=== PATIENT | male | born 1960 | race Caucasian/White ===

== ENCOUNTER 2020-03-17 16:57 | Inpatient (IN) ==
[2020-03-17] MEDS ORDERED: IOPAMIDOL 100 ML BOTTLE IV ONE (16:58)
[2020-03-17] MEDS ORDERED: 0.9 % SODIUM CHLORIDE 1,000 ML IV ONE ×2 (18:23→20:36)
[2020-03-17] MEDS ORDERED: HYDROmorphone 0.5 MG/0.5 ML SYRINGE IV PRN (18:23)
[2020-03-17] MEDS ORDERED: ONDANSETRON 4 MG/2 ML VIAL IV ONE (18:23)
--- NOTE | 2020-03-17 18:27 | Emergency Department Note ---
General Adult HPI - General Chief complaint: Urogenital-Male Stated complaint: Hemeroids and R buttock pain Time Seen by Provider: 03/17/20 17:28 Source: patient Mode of arrival: ambulatory Limitations: no limitations - History of Present Illness HPI Narrative: 59-year-old male patient presents emergency department with chief complaint of worsening rectal pain, nausea, and constipation. Patient was evaluated by a colleague in the emergency department yesterday for similar symptoms. At that time he had what appeared to be some prostate tenderness and possible internal hemorrhoids. He was treated for same with hydrocortisone suppositories and cipr ofloxacin twice daily. He was also given few hydrocodone for pain. Unfortunately, patient mentions he woke up this morning feeling much worse. He is now having considerable pain to his rectum more localized to the right side. He rates his pain at 9/10. He mentions to me has not had a bowel movement last 3 days. He passed no flatus yesterday but is passed very little flatus today. He feels the urge to defecate but is unable to. He denies active vomiting. He mentions that the pain medication has not been effective. ROS: Denies systemic illness, fever, sweats, chills. Denies runny nose, sinus congestion, or cough. Denies shortness of breath. Denies retrosternal chest pain or palpitations. Denies dysuria, hematuria, urinary frequency, or urinary urgency. Denies generalized or focal weakness. - Related Data Home Medications Medication Instructions Recorded Confirmed Ascorbic Acid/Multivit-Min 1 packet PO QDAY 08/13/18 03/17/20 [Emergen-C 1,000 mg Packet] Aspirin [Ana Lilia Chewable Aspirin] 81 mg PO QDAY 08/13/18 03/17/20 Hydrochlorothiazide [Oretic] 25 mg PO DAILY 08/13/18 03/17/20 Loratadine [Allerclear] 10 mg PO QDAY 08/13/18 08/13/18 Losartan Potassium [Cozaar] 100 mg PO DAILY 08/13/18 03/17/20 Previous Rx's Medication Instructions Recorded Ciprofloxacin [Cipro] 500 mg PO BID #30 tab 03/16/20 HYDROcodone/APAP 5/325MG [[place] 1 tab PO Q4HP PRN #10 tab 03/16/20 5-325Mg] Hydrocortisone Acetate [Anusol Hc] 25 mg AL BID #10 supp.rect 03/16/20 Allergies Allergy/AdvReac Type Severity Reaction Status Date / Time No Known Drug Allergies Allergy Verified 08/13/18 19:34 Review of Systems All systems ED: reviewed and negative except as stated. Past Medical History - Past Medical History Medical history: Reports: no medical history - Social History smoking status: Never smoker Physical Exam Limitations: no limitations General appearance: other (Well-developed, well-nourished, morbidly obese 59-year-old male patient laying right lateral recumbent on the emergency room gurney obviously feeling uncomfortable. He is in no acute respiratory distress. He is mildly tachycardic at 106 but his other vital signs are normal limits. He is afebrile. He does not appear septic.) Head: atraumatic, normocephalic Eye: Present: normal appearance, PERRL, EOMI. Absent: scleral icterus, conjunc tival injection ENT: Present: normal oropharynx, mucous membranes moist Neck: Present: trachea midline. Absent: lymphadenopathy Chest: Present: symmetric chest wall rise Respiratory: Present: normal lung sounds bilaterally. Absent: respiratory distress, wheezes, stridor, accessory muscle use, prolonged expiratory phase Cardiovascular: Present: regular rate, normal rhythm. Absent: systolic murmur, diastolic murmur Abdominal: Present: soft, distention, tenderness, rigidity, diminished bowel sounds, other (Patient is morbidly obese making the abdominal exam somewhat difficult. She is very tense and firm throughout his abdomen on exam.). Abs ent: guarding, rebound, organomegaly, mass Abdominal tenderness: Present: diffuse, moderate Rectal: Present: normal rectal tone, heme (-) stool, tenderness (Exquisite tenderness palpation to the right rectal wall on exam. No obvious area of fluctuance.), prostate tenderness. Absent: normal inspection (Small external hemorrhoid noted.), fecal impaction Extremities: Present: normal inspection, normal capillary refill. Absent: pedal edema, pretibial edema, calf tenderness Back: Present: normal inspection, full ROM. Absent: CVA tenderness (R), CVA tenderness (L) Neurological: Present: alert, oriented X3 Psychiatric: Present: normal affect, normal mood Skin: Present: warm, dry, normal color Course Course Narrative: Patient was evaluated yesterday started on treatment for prostatitis and possible internal hemorrhoids. Unfortunately returns today worse. With this in mind we are going to order some repeat laboratory studies. He did have considerable tenderness on rectal exams are going to order abdominal/pelvic CT scan with contrast. Patient was given Dilaudid 0.5 mg IVP for pain. He was given 4 mg of Zofran IVP for nausea. He was started on normal saline at 1000 mL bolus. A review of his laboratory studies show the following: CBC WBC 12.8, all others within normal limits. CMP creatinine 1.3, all others within normal limits. Abdominal/pelvic CT scan with contrast showing a small right perianal abscess with infiltration of the perianal fat. Radiologist mentioned an 8 mm noncalcified right lower lobe pulmonary parenchymal nodule and recommends a repeat CT scan follow-up in 6-12 months. He also mentions a 12 mm low-density lesion of the right lobe of the liver and recommends follow-up. After reviewing all the data I discussed these findings with the patient. At this time patient does have a developing suzanne-rectal abscess. With this in mind, I reached out to our on-call general surgeon (Dr. Myers) and discussed the case with him. At this time requested that the patient be admitted to observation under his care. Patient is to be placed n.p.o. after midnight anticipation of surgery. Dr. Myers recommended starting IV Zosyn and providing for his pain. Knowing this I placed holding orders for the patient. Afterward, patient is going to be admitted to the surgical service as mentioned. All further treatment decisions, modalities, and ultimate patient disposition will be carried out by Dr. Myers. Vital Signs Temperature 97.7 F 03/17/20 16:59 Pulse Rate 106 H 03/17/20 16:59 Respiratory Rate 18 03/17/20 16:59 Blood Pressure 160/96 03/17/20 16:59 Pulse Oximetry (%) 96 03/17/20 16:59 Temperature 97.7 F 03/17/20 16:59 Pulse Rate 96 H 03/17/20 21:21 Respiratory Rate 18 03/17/20 16:59 Blood Pressure 172/92 03/17/20 21:21 Pulse Oximetry (%) 93 03/17/20 21:21 Medical Decision Making - Lab Data Lab results reviewed: Yes I reviewed the patient's lab results. Result diagrams: 03/17/20 18:55 03/17/20 18:55 Lab Results 03/17/20 03/17/20 Range/Units 18:55 18:55 WBC 12.8 H (4.50-11.00) K/mcL RBC 5.25 (4.63-6.08) M/mcL Hgb 16.2 (13.7-17.5) g/dL Hct 47.9 (40.1-51.0) % POC Hct 49.0 (41.0-55.0) % MCV 91.2 (80.0-100.0) fL MCH 30.9 (26.0-34.0) pg MCHC 33.8 (31.0-36.0) g/dL RDW 12.6 (11.5-14.5) % Plt Count 263 (140-440) K/mcL MPV 9.7 (7.4-10.4) fL Gran % 80.7 H (38.0-78.0) % Lymph % (Auto) 8.7 L (15.5-49.0) % [place]anan % (Auto) 9.7 (1.0-12.0) % Eos % (Auto) 0.7 (0.0-7.0) % Baso % (Auto) 0.2 (0.0-2.0) % Gran # 10.35 H (1.80-8.00) K/mcL Lymph # (Auto) 1.11 L (1.50-4.80) K/mcL [place]anan # (Auto) 1.25 H (0.10-0.90) K/mcL Eos # (Auto) 0.09 (0.00-0.70) K/mcL Baso # (Auto) 0.03 (0.00-0.30) K/mcL POC Sodium 138 (133-145) mmol/L Sodium 139 (133-145) mmol/L POC Potassium 3.5 (3.3-5.1) mmol/L Potassium 3.8 (3.3-5.1) mmol/L POC Chloride 100 (96-108) mmol/L Chloride 100 (96-108) mmol/L Carbon Dioxide 26 (22-30) mmol/L POC Total CO2 28 (22-30) mmol/L Anion Gap 13.0 (8-16) POC BUN 15 (6-20) mg/dl BUN 14 (6-20) mg/dl Creatinine 1.3 H (0.7-1.2) mg/dl POC Creatinine 1.3 H (0.7-1.2) mg/dl GFR Calculation 59 Glucose 103 (70-105) mg/dL POC Glucose 112 H (70-105) mg/dL Calcium 9.3 (8.6-10.4) mg/dl POC WB Ioniz Calcium 1.16 (1.16-1.32) mmol/L Total Bilirubin 0.7 (0.0-1.0) mg/dL AST 29 (0-37) U/l ALT 30 (0-40) U/l Alkaline Phosphatase 57 (39-117) U/L Total Protein 7.2 (5.9-8.4) gm/dL Albumin 4.0 (3.2-5.2) gm/dL Globulin 3.2 (2.2-3.7) gm/dL Albumin/Globulin Ratio 1.3 (1.0-2.3) - Radiology Data Radiology results reviewed: Yes I reviewed the patient's radiology results. Ordering Physician: Wilmar Lebron PA-C Date of Service: 03/17/20 Procedure(s): CT abdomen pelvis w con Accession Number(s): [id number] INDICATION: Worsening pelvic/perineal pain. COMPARISON: None. TECHNIQUE: Axial images were obtained through the abdomen and pelvis. Sagittally and coronally reformatted images. 80 mL Isovue 370 injected intravenously. Oral contrast material was not administered FINDINGS: Lung bases:8 mm noncalcified nodule at the right lung base, image 29. 6-12 month and 18-[address] follow-up recommended. Lung bases are otherwise negative Liver:12 mm low-density lesion in the posterior segment of the right lobe of the liver. This is a nonspecific finding. Clinical correlation for history of primary malignancy is recommended. This may be a benign hemangioma. Ultrasound may be of benefit. Follow-up CT scan in 6 months could also be performed. There is probable hepatic steatosis. No other focal abnormality. Gallbladder, bilary:No calcified gallstones. No gallbladder wall thickening. No dilated intra or extrahepatic bile ducts. Spleen:No splenomegaly. Normal enhancement of splenic and portal veins. Pancreas:No pancreatic mass. No peripancreatic abnormality Adrenal glands:Negative Kidneys, ureters, bladder: 3.6 cm right renal cyst. Kidneys are otherwise negative. No solid mass. No hydronephrosis There is no hydroureter. No ureteral stone No bladder calculi or detectable mass Gastrointestinal: There is right-sided perianal soft tissue abnormality. There is a 12 mm low density lesion which may be a perianal abscess. There is infiltration of the perianal gluteal fat. There is no soft tissue gas. No evidence for Tay's gangrene Colon is otherwise negative. No diverticulitis. No detectable colonic mass. Small bowel is negative. No mechanical small bowel obstruction. Appendix: The appendix is negative Vascular:Negative abdominal aorta. Superior mesenteric artery and celiac trunk are normal. Normal opacification of the inferior mesenteric artery Lymphatic:No retroperitoneal or mesenteric adenopathy Mesentery, peritoneum: No free intraperitoneal fluid. No mesenteric or retroperitoneal mass. Reproductive:The prostate is not significantly enlarged Musculoskeletal:No lumbar compression fractures. Sacrum and pelvis are negative. No hip fracture. IMPRESSION: 1. Small right perianal abscess and infiltration of perianal fat 2. 8 mm noncalcified right lower lobe pulmonary parenchymal nodule 3. 12 mm low-density lesion in the right lobe of liver. Follow-up recommended 4. Negative appendix The exam was performed using radiation dose optimization techniques including, but not limited to, automated exposure control, adjustment of the mA and/or kV according to patient size and use of iterative reconstruction technique. Interpreted and Authenticated by: Leo Mancera 03/17/20 Disposition Pt seen by SYSTEMS SPECIALIST/PA only: Yes Clinical Impression: Perirectal abscess, Pulmonary nodule Disposition: Xfer As Outpt/Obs ([facility]) Condition: Good Referrals: Fast,Jad, FIRE MANAGEMENT TECHNICIAN [Primary Care Provider] -
[2020-03-17 19:14] LABS: POC Blood Urea Nitrogen 15 mg/dl (6-20); POC CO2 28 mmol/L (22-30); POC Calcium, Ionized 1.16 mmol/L (1.16-1.32); POC Chloride 100 mmol/L (96-108); POC Creatinine 1.3 mg/dl (0.7-1.2); POC Glucose, Random 112 mg/dL (70-105); POC Potassium 3.5 mmol/L (3.3-5.1); POC Sodium 138 mmol/L (133-145)
[2020-03-17 20:07] LABS: Basophils # (Auto) 0.03 K/mcL (0.00-0.30); Basophils % (Auto) 0.2 % (0.0-2.0); Eosinophils # (Auto) 0.09 K/mcL (0.00-0.70); Eosinophils % (Auto) 0.7 % (0.0-7.0); Granulocytes % (Auto) 80.7 % (38.0-78.0); Hematocrit 47.9 % (40.1-51.0); Hemoglobin 16.2 g/dL (13.7-17.5); Lymphocytes # (Auto) 1.11 K/mcL (1.50-4.80); Lymphocytes % (Auto) 8.7 % (15.5-49.0); Mean Cell Volume 91.2 fL (80.0-100.0); Mean Corpuscular HGB Conc 33.8 g/dL (31.0-36.0); Mean Platelet Volume 9.7 fL (7.4-10.4); Monocytes # (Auto) 1.25 K/mcL (0.10-0.90); Monocytes % (Auto) 9.7 % (1.0-12.0); Platelet Count 263 K/mcL (140-440); RBC 5.25 M/mcL (4.63-6.08); Red Cell Distribution Width 12.6 % (11.5-14.5); WBC 12.8 K/mcL (4.50-11.00)
[2020-03-17 20:27] LABS: ALT/SGPT 30 U/l (0-40); AST/SGOT 29 U/l (0-37); Albumin/Globulin Ratio 1.3 (1.0-2.3); Alkaline Phosphatase 57 U/L (39-117); Bilirubin,Total 0.7 mg/dL (0.0-1.0); Blood Urea Nitrogen 14 mg/dl (6-20); Calcium 9.3 mg/dl (8.6-10.4); Carbon Dioxide 26 mmol/L (22-30); Chloride 100 mmol/L (96-108); Globulin 3.2 gm/dL (2.2-3.7); Glomerular Filtration Rate 59; Glucose 103 mg/dL (70-105)
--- NOTE | 2020-03-17 21:42 | Cat Scan Report ---
INDICATION: Worsening pelvic/perineal pain. COMPARISON: None. TECHNIQUE: Axial images were obtained through the abdomen and pelvis. Sagittally and coronally reformatted images. 80 mL Isovue 370 injected intravenously. Oral contrast material was not administered FINDINGS: Lung bases:8 mm noncalcified nodule at the right lung base, image 29. 6-12 month and 18-[address] follow-up recommended. Lung bases are otherwise negative Liver:12 mm low-density lesion in the posterior segment of the right lobe of the liver. This is a nonspecific finding. Clinical correlation for history of primary malignancy is recommended. This may be a benign hemangioma. Ultrasound may be of benefit. Follow-up CT scan in 6 months could also be performed. There is probable hepatic steatosis. No other focal abnormality. Gallbladder, bilary:No calcified gallstones. No gallbladder wall thickening. No dilated intra or extrahepatic bile ducts. Spleen:No splenomegaly. Normal enhancement of splenic and portal veins. Pancreas:No pancreatic mass. No peripancreatic abnormality Adrenal glands:Negative Kidneys, ureters, bladder: 3.6 cm right renal cyst. Kidneys are otherwise negative. No solid mass. No hydronephrosis There is no hydroureter. No ureteral stone No bladder calculi or detectable mass Gastrointestinal: There is right-sided perianal soft tissue abnormality. There is a 12 mm low density lesion which may be a perianal abscess. There is infiltration of the perianal gluteal fat. There is no soft tissue gas. No evidence for Tay's gangrene Colon is otherwise negative. No diverticulitis. No detectable colonic mass. Small bowel is negative. No mechanical small bowel obstruction. Appendix: The appendix is negative Vascular:Negative abdominal aorta. Superior mesenteric artery and celiac trunk are normal. Normal opacification of the inferior mesenteric artery Lymphatic:No retroperitoneal or mesenteric adenopathy Mesentery, peritoneum: No free intraperitoneal fluid. No mesenteric or retroperitoneal mass. Reproductive:The prostate is not significantly enlarged Musculoskeletal:No lumbar compression fractures. Sacrum and pelvis are negative. No hip fracture. IMPRESSION: 1. Small right perianal abscess and infiltration of perianal fat 2. 8 mm noncalcified right lower lobe pulmonary parenchymal nodule 3. 12 mm low-density lesion in the right lobe of liver. Follow-up recommended 4. Negative appendix The exam was performed using radiation dose optimization techniques including, but not limited to, automated exposure control, adjustment of the mA and/or kV according to patient size and use of iterative reconstruction technique. Interpreted and Authenticated by: Leo Mancera 03/17/20
[2020-03-17] MEDS ORDERED: ONDANSETRON 4 MG/2 ML VIAL IV PRN (22:50)
[2020-03-18] MEDS: PIPERACILLIN SODIUM/TAZOBACTAM 3.375 GM in DEXTROSE 5% IN WATER 50 ML IV SCH ×5 (00:15→23:58)
[2020-03-18] MEDS: HYDROmorphone 0.5 MG/0.5 ML SYRINGE IV PRN ×6 (00:20→23:58)
[2020-03-18] MEDS: 0.9 % SODIUM CHLORIDE 1,000 ML IV SCH ×5 (00:23→23:57)
[2020-03-18] MEDS: 0.9 % SODIUM CHLORIDE 10 ML SYRINGE IV SCH ×5 (05:04→21:42)
--- NOTE | 2020-03-18 11:25 | General Surg History&Physical ---
History of Present Illness Patient information: Note initiated : 03/18/20 at 11:20 am Service Date, if different from initiated Date: [] Patient: Unruly Fink 59 y/o M admitted on 03/17/20 for Hemeroids and R buttock pain. Chief Complaint: [] HPI: Mr. Fink is a 59 year old M admitted for treatment of a high perirectal, periprosthetic abscess with surrounding cellulitis. The patient started having diffuse pain of his perineum and perianal area on Friday. The pain became progressively worse and he had difficulty with urinating. He was finally treated in the emergency room on and it was elected to treat her with antibiotics for possible prostatitis. He did not get any better and returned on Friday for repeat symptoms. His white count was 12.4. CT shows a 1 cm focal area of possible fluid collection with tissue edema is surrounding the area extending about 5 cm but no organized major abscess. He was admitted and is to be considered for operative therapy however I have reviewed his x-rays with the radiologist and the area of concern is only 1 cm and is to high to be considered for operative drainage at this time. He is counseled for antibiotic therapy with "close observation. If he should progress will take him to the operating room for examination under anesthesia and open drainage. Review of Systems All systems PM: reviewed and no additional remarkable complaints except as stated (negative except as noted in HPI and below) - Cardiovascular claudication ( bilateral calf claudication) - Musculoskeletal other ( right shoulder pain) - Neurological other ( neuropathy of both feet) Past History Past medical history: No known medical illness Past surgical history: Left elbow surgery remotely Past family history: Age 83 with prior history of kidney cancer Father age 81 due to severe degenerative dementia Brother age 62 due to fatal AK from coronary artery disease Past social history: Never smoker CHEWED tobacco for 38 years but stopped 10 years ago Medications and Allergies Home Medications Medication Instructions Recorded Confirmed Type Ascorbic Acid/Multivit-Min 1 packet PO QDAY 08/13/18 03/18/20 History [Emergen-C 1,000 mg Packet] Aspirin [Ana Lilia Chewable Aspirin] 81 mg PO QDAY 08/13/18 03/18/20 History Hydrochlorothiazide [Oretic] 25 mg PO DAILY 08/13/18 03/18/20 History Loratadine [Allerclear] 10 mg PO QDAY 08/13/18 03/18/20 History Losartan Potassium [Cozaar] 100 mg PO DAILY 08/13/18 03/18/20 History HYDROcodone/APAP 5/325MG [[place] 1 tab PO Q4HP PRN #10 tab 03/16/20 03/18/20 Rx 5-325Mg] Hydrocortisone Acetate [Anusol Hc] 25 mg AL BID #10 supp.rect 03/16/20 03/18/20 Rx Allergies Allergy/AdvReac Type Severity Reaction Status Date / Time No Known Drug Allergies Allergy Verified 08/13/18 19:34 Exam Temp Pulse Resp BP Pulse Ox 98.9 F 83 18 132/75 93 03/18/20 08:00 03/18/20 08:00 03/18/20 08:00 03/18/20 08:00 03/18/20 08:00 - General physical appearance well developed, well nourished, no distress - Eyes PERRL, normal ocular movement - ENT normal pinna, normal nares, normal mucosa, no hearing loss, no congestion - Head Head exam IM: Present: atraumatic, normocephalic - Neck no masses, no bruits, trachea midline, no lymphadenopathy, no venous distension - Cardiovascular Cardiovascular exam IM: Present: normal rate and rhythm - Respiratory normal expansion, normal respiratory effort, clear to percussion, clear to auscultation - Abdomen Abdomen: Present: soft, non tender, bowel sounds Hernia: Present: none - Genitourinary Present: normal penis with no external lesions (he) - Rectum Rectum: Present: normal sphincter tone, no masses, no bleeding, other (perianal tenderness of the right side but no masses noted; normal sphincter tone; small external hemorrhoid tags) - Integumentary Present: no rash, no growths, no abnormal pigmentation - Neurologic Present: normal coordination, normal sensation - Musculoskeletal Present: normal gait, normal posture - Psychiatric Present: oriented to time, oriented to person, oriented to place, speech is normal, memory intact Assessment and Plan (1) Perirectal abscess The abscess is very small at 1 cm and is high near the border of the prostate. He has some tissue edema emanating from the area but no formed abscess that can be drained. Patient is advised that I would treat him with antibiotics and will make decision in 1-2 days if he should need operation. It is probable that operation will not be needed.. Status: Acute (2) Prostatitis Malave catheter to remain in place until the inflammation has resolved Status: Acute
[2020-03-18] MEDS ORDERED: ONDANSETRON 4 MG/2 ML VIAL IV PRN (11:36)
[2020-03-18] MEDS ORDERED: ENOXAPARIN 40 MG/0.4 ML SYRINGE SQ SCH (12:00)
[2020-03-18] MEDS ORDERED: ENOXAPARIN 40 MG/0.4 ML SYRINGE SQ ONE (12:30)
[2020-03-18] MEDS ORDERED: SENNOSIDES 1 TABLET PO SCH (21:00)
[2020-03-18] MEDS: DOCUSATE SODIUM 100 MG CAPSULE PO SCH (21:42)
[2020-03-19] MEDS: HYDROmorphone 0.5 MG/0.5 ML SYRINGE IV PRN ×5 (02:32→23:33)
[2020-03-19] MEDS: 0.9 % SODIUM CHLORIDE 1,000 ML IV SCH ×4 (03:56→23:32)
[2020-03-19] MEDS: 0.9 % SODIUM CHLORIDE 10 ML SYRINGE IV SCH ×6 (04:49→20:54)
[2020-03-19] MEDS: PIPERACILLIN SODIUM/TAZOBACTAM 3.375 GM in DEXTROSE 5% IN WATER 50 ML IV SCH ×4 (05:32→23:42)
[2020-03-19 06:50] LABS: Basophils # (Auto) 0.04 K/mcL (0.00-0.30); Basophils % (Auto) 0.3 % (0.0-2.0); Eosinophils # (Auto) 0.27 K/mcL (0.00-0.70); Eosinophils % (Auto) 2.3 % (0.0-7.0); Granulocytes % (Auto) 78.1 % (38.0-78.0); Hematocrit 40.8 % (40.1-51.0); Hemoglobin 13.9 g/dL (13.7-17.5); Lymphocytes % (Auto) 9.5 % (15.5-49.0); Mean Cell Volume 90.3 fL (80.0-100.0); Mean Corpuscular HGB Conc 34.1 g/dL (31.0-36.0); Mean Platelet Volume 9.7 fL (7.4-10.4); Monocytes # (Auto) 1.13 K/mcL (0.10-0.90); Monocytes % (Auto) 9.8 % (1.0-12.0); Platelet Count 231 K/mcL (140-440); RBC 4.52 M/mcL (4.63-6.08); Red Cell Distribution Width 12.4 % (11.5-14.5); WBC 11.5 K/mcL (4.50-11.00)
[2020-03-19 07:06] LABS: ALT/SGPT 27 U/l (0-40); AST/SGOT 35 U/l (0-37); Albumin 3.1 gm/dL (3.2-5.2); Albumin/Globulin Ratio 1.1 (1.0-2.3); Alkaline Phosphatase 45 U/L (39-117); Bilirubin,Direct 0.2 mg/dL (0.0-0.3); Bilirubin,Total 0.7 mg/dL (0.0-1.0); Blood Urea Nitrogen 11 mg/dl (6-20); Calcium 8.1 mg/dl (8.6-10.4); Carbon Dioxide 25 mmol/L (22-30); Chloride 102 mmol/L (96-108); Globulin 2.8 gm/dL (2.2-3.7); Glucose 105 mg/dL (70-105); Lactate Dehydrogenase 184 U/L (94-250); Triglycerides 88 mg/dl (<150); Uric Acid 3.9 mg/dL (2.5-8.0)
[2020-03-19 07:11] LABS: Glomerular Filtration Rate 81; Phosphorous 2.1 mg/dL (2.7-4.5)
[2020-03-19] MEDS: DOCUSATE SODIUM 100 MG CAPSULE PO SCH (08:13)
[2020-03-19] MEDS: LOSARTAN 50 MG TABLET PO SCH (08:21)
[2020-03-19] MEDS: ENOXAPARIN 40 MG/0.4 ML SYRINGE SQ SCH (08:25)
--- NOTE | 2020-03-19 11:24 | General Surgery Progress Note ---
Subjective Patient reports: feels better, still having pain, flatus, diarrhea, afebrile Narrative: Note initiated : 03/19/20 at 11:22 am Service Date, if different from initiated Date: [] Patient: Unruly Fink 59 y/o M admitted on 03/18/20 for Hemeroids and R buttock pain. Chief Complaint: [patient states that he feels better overall. His actual pain level is better though he still rates it between 7 and 8. He has had some loose bowel movements with incontinence. He has not had any rectal bleeding. He describes fecal urgency. He has been afebrile with a peak temperature of 99.2 on yesterday. White blood count 11.5, hemoglobin 13.9, hematocrit 40.8, phosphorus 2.1, potassium 3.7] Objective Temp Pulse Resp BP Pulse Ox 97.8 F 84 18 162/87 94 03/19/20 08:00 03/19/20 08:00 03/19/20 08:00 03/19/20 08:00 03/19/20 08:00 - Additional Data Intake & Output - Last 24 hours: Intake & Output 03/17/20 03/18/20 03/19/20 03/20/20 05:59 05:59 05:59 05:59 Intake Total 2100 4690 350 Output Total 1150 2350 Balance 950 2340 350 Weight 277 lb 6.4 oz 281 lb 1 oz - General physical appearance well developed, well nourished, no distress - Eyes PERRL, normal ocular movement - ENT normal pinna, normal nares, normal mucosa, no hearing loss, no congestion - Neck no masses, no bruits, trachea midline, no lymphadenopathy, no venous distension - Respiratory normal expansion, normal respiratory effort, clear to auscultation - Cardiovascular Cardiovascular exam: Present: normal rate and rhythm, RRR, +S1, +S2. Absent: JVD, tachycardia - Abdomen non tender, bowel sounds (present), surgical scars (none), masses (none) - Rectum other (mild tenderness right perianal area but significantly improved from yesterday. He still has some induration but it is less than yesterday.) - Integumentary no rash, no growths, no abnormal pigmentation - Neurologic normal coordination, normal sensation - Musculoskeletal normal gait, normal posture - Psychiatric oriented to time, oriented to person, oriented to place, speech is normal, memory intact - Labs 03/19/20 05:50 03/19/20 05:50 Diabetes panel 03/19/20 Range/Units 05:50 Sodium 138 (133-145) mmol/L Potassium 3.7 (3.3-5.1) mmol/L Chloride 102 (96-108) mmol/L Carbon Dioxide 25 (22-30) mmol/L BUN 11 (6-20) mg/dl Creatinine 1.0 (0.7-1.2) mg/dl Glucose 105 (70-105) mg/dL Calcium 8.1 L (8.6-10.4) mg/dl AST 35 (0-37) U/l ALT 27 (0-40) U/l Alkaline Phosphatase 45 (39-117) U/L Total Protein 5.9 (5.9-8.4) gm/dL Albumin 3.1 L (3.2-5.2) gm/dL Triglycerides 88 (<150) mg/dl Calcium panel 03/19/20 Range/Units 05:50 Calcium 8.1 L (8.6-10.4) mg/dl Phosphorus 2.1 L (2.7-4.5) mg/dL Albumin 3.1 L (3.2-5.2) gm/dL Pituitary panel 03/19/20 Range/Units 05:50 Sodium 138 (133-145) mmol/L Potassium 3.7 (3.3-5.1) mmol/L Chloride 102 (96-108) mmol/L Carbon Dioxide 25 (22-30) mmol/L BUN 11 (6-20) mg/dl Creatinine 1.0 (0.7-1.2) mg/dl Glucose 105 (70-105) mg/dL Calcium 8.1 L (8.6-10.4) mg/dl Adrenal panel 03/19/20 Range/Units 05:50 Sodium 138 (133-145) mmol/L Potassium 3.7 (3.3-5.1) mmol/L Chloride 102 (96-108) mmol/L Carbon Dioxide 25 (22-30) mmol/L BUN 11 (6-20) mg/dl Creatinine 1.0 (0.7-1.2) mg/dl Glucose 105 (70-105) mg/dL Calcium 8.1 L (8.6-10.4) mg/dl Total Bilirubin 0.7 (0.0-1.0) mg/dL AST 35 (0-37) U/l ALT 27 (0-40) U/l Alkaline Phosphatase 45 (39-117) U/L Total Protein 5.9 (5.9-8.4) gm/dL Albumin 3.1 L (3.2-5.2) gm/dL Assessment and Plan (1) Perirectal abscess Status: Acute Assessment and plan: Clinically improved over the past 24 hours Current Visit: Yes (2) Prostatitis Status: Acute Assessment and plan: Small amount of bleeding per catheter with urine flow is adequate Current Visit: No - Time Spent With Patient Total time spent is greater than 50% in coordination of care (as documented) at patient's floor/unit and/or counseling patient:
[2020-03-19] MEDS ORDERED: POTASSIUM PHOSPHATE 40 MEQ in DEXTROSE 5% IN WATER 500 ML IV ONE (12:00)
[2020-03-19] MEDS: KETOROLAC 30 MG/ML VIAL IV SCH ×3 (12:24→23:41)
[2020-03-20] MEDS: 0.9 % SODIUM CHLORIDE 1,000 ML IV SCH ×4 (03:43→21:46)
[2020-03-20] MEDS: 0.9 % SODIUM CHLORIDE 10 ML SYRINGE IV SCH ×3 (04:15→20:24)
[2020-03-20] MEDS: HYDROmorphone 0.5 MG/0.5 ML SYRINGE IV PRN (05:47)
[2020-03-20] MEDS: PIPERACILLIN SODIUM/TAZOBACTAM 3.375 GM in DEXTROSE 5% IN WATER 50 ML IV SCH ×4 (05:48→23:35)
[2020-03-20] MEDS: KETOROLAC 30 MG/ML VIAL IV SCH ×4 (05:48→23:36)
[2020-03-20 08:19] LABS: Basophils # (Auto) 0.03 K/mcL (0.00-0.30); Basophils % (Auto) 0.3 % (0.0-2.0); Eosinophils # (Auto) 0.42 K/mcL (0.00-0.70); Eosinophils % (Auto) 4.4 % (0.0-7.0); Granulocytes % (Auto) 72.8 % (38.0-78.0); Hematocrit 38.9 % (40.1-51.0); Hemoglobin 12.9 g/dL (13.7-17.5); Lymphocytes # (Auto) 1.14 K/mcL (1.50-4.80); Lymphocytes % (Auto) 11.8 % (15.5-49.0); Mean Corpuscular HGB Conc 33.2 g/dL (31.0-36.0); Monocytes # (Auto) 1.03 K/mcL (0.10-0.90); Monocytes % (Auto) 10.7 % (1.0-12.0); Platelet Count 228 K/mcL (140-440); RBC 4.23 M/mcL (4.63-6.08); Red Cell Distribution Width 12.4 % (11.5-14.5); WBC 9.6 K/mcL (4.50-11.00)
[2020-03-20 08:35] LABS: ALT/SGPT 27 U/l (0-40); AST/SGOT 35 U/l (0-37); Albumin 2.9 gm/dL (3.2-5.2); Albumin/Globulin Ratio 1.1 (1.0-2.3); Alkaline Phosphatase 49 U/L (39-117); Bilirubin,Direct < 0.2 mg/dL (0.0-0.3); Bilirubin,Total 0.5 mg/dL (0.0-1.0); Blood Urea Nitrogen 14 mg/dl (6-20); Calcium 8.4 mg/dl (8.6-10.4); Carbon Dioxide 24 mmol/L (22-30); Chloride 103 mmol/L (96-108); Globulin 2.7 gm/dL (2.2-3.7); Glomerular Filtration Rate 73; Glucose 82 mg/dL (70-105); Lactate Dehydrogenase 216 U/L (94-250); Phosphorous 2.5 mg/dL (2.7-4.5); Triglycerides 93 mg/dl (<150); Uric Acid 3.6 mg/dL (2.5-8.0)
[2020-03-20] MEDS: LOSARTAN 50 MG TABLET PO SCH (10:51)
[2020-03-20] MEDS: ENOXAPARIN 40 MG/0.4 ML SYRINGE SQ SCH (10:52)
--- NOTE | 2020-03-20 17:03 | General Surgery Progress Note ---
Subjective Patient reports: still having pain, pain is less, flatus, diarrhea, afebrile Narrative: Note initiated : 03/20/20 at 5:01 pm Service Date, if different from initiated Date: [] Patient: Unruly Fink 59 y/o M admitted on 03/18/20 for Hemeroids and R buttock pain. Chief Complaint: [Patient is clinically improved. He states that he has wrist pain. He denies nausea. He has had some diarrhea. White blood count 9.6, hemoglobin 12.9, hematocrit 30.9, potassium 3.5, phosphorus 2.5.] Objective Temp Pulse Resp BP Pulse Ox 97.9 F 59 L 16 118/77 95 03/20/20 15:42 03/20/20 15:42 03/20/20 15:42 03/20/20 15:42 03/20/20 15:42 - Additional Data Intake & Output - Last 24 hours: Intake & Output 03/18/20 03/19/20 03/20/20 03/21/20 05:59 05:59 05:59 05:59 Intake Total 2100 4690 4409.0909 2260 Output Total 1150 2350 1575 550 Balance 950 2340 2834.0909 1710 Weight 277 lb 6.4 oz 281 lb 1 oz 283 lb 4.8 oz 283 lb 4.8 oz - General physical appearance well developed, well nourished, no distress, moderate pain - Eyes PERRL, normal ocular movement - ENT normal pinna, normal nares, normal mucosa, no hearing loss, no congestion - Neck no masses, no bruits, trachea midline, no lymphadenopathy, no venous distension - Respiratory normal expansion, normal respiratory effort, clear to percussion, clear to auscultation - Cardiovascular Cardiovascular exam: Present: normal rate and rhythm, RRR, +S1, +S2. Absent: tachycardia - Abdomen non tender (no abdominal tenderness noted), bowel sounds (normal active bowel sounds), surgical scars (none), masses (none) - Rectum other (patient has almost no induration and has minimal tenderness of his perianal tissues at this time.) - Integumentary no rash, no growths, no abnormal pigmentation - Neurologic normal coordination, normal sensation - Musculoskeletal normal gait, normal posture - Psychiatric oriented to time, oriented to person, oriented to place, speech is normal, memory intact - Labs 03/20/20 05:30 03/20/20 05:30 Diabetes panel 03/20/20 Range/Units 05:30 Sodium 139 (133-145) mmol/L Potassium 3.5 (3.3-5.1) mmol/L Chloride 103 (96-108) mmol/L Carbon Dioxide 24 (22-30) mmol/L BUN 14 (6-20) mg/dl Creatinine 1.1 (0.7-1.2) mg/dl Glucose 82 (70-105) mg/dL Calcium 8.4 L (8.6-10.4) mg/dl AST 35 (0-37) U/l ALT 27 (0-40) U/l Alkaline Phosphatase 49 (39-117) U/L Total Protein 5.6 L (5.9-8.4) gm/dL Albumin 2.9 L (3.2-5.2) gm/dL Triglycerides 93 (<150) mg/dl Calcium panel 03/20/20 Range/Units 05:30 Calcium 8.4 L (8.6-10.4) mg/dl Phosphorus 2.5 L (2.7-4.5) mg/dL Albumin 2.9 L (3.2-5.2) gm/dL Pituitary panel 03/20/20 Range/Units 05:30 Sodium 139 (133-145) mmol/L Potassium 3.5 (3.3-5.1) mmol/L Chloride 103 (96-108) mmol/L Carbon Dioxide 24 (22-30) mmol/L BUN 14 (6-20) mg/dl Creatinine 1.1 (0.7-1.2) mg/dl Glucose 82 (70-105) mg/dL Calcium 8.4 L (8.6-10.4) mg/dl Adrenal panel 03/20/20 Range/Units 05:30 Sodium 139 (133-145) mmol/L Potassium 3.5 (3.3-5.1) mmol/L Chloride 103 (96-108) mmol/L Carbon Dioxide 24 (22-30) mmol/L BUN 14 (6-20) mg/dl Creatinine 1.1 (0.7-1.2) mg/dl Glucose 82 (70-105) mg/dL Calcium 8.4 L (8.6-10.4) mg/dl Total Bilirubin 0.5 (0.0-1.0) mg/dL AST 35 (0-37) U/l ALT 27 (0-40) U/l Alkaline Phosphatase 49 (39-117) U/L Total Protein 5.6 L (5.9-8.4) gm/dL Albumin 2.9 L (3.2-5.2) gm/dL Assessment and Plan (1) Perirectal abscess Status: Acute Assessment and plan: Patient has significantly improved with reference to yesterday. His major complaint now is diarrhea. Current Visit: Yes (2) Prostatitis Status: Acute Assessment and plan: Hematuria has resolved and he has much less pressure from the Malave catheter Current Visit: No - Time Spent With Patient Total time spent is greater than 50% in coordination of care (as documented) at patient's floor/unit and/or counseling patient:
--- NOTE | 2020-03-20 17:19 | General Surgery Progress Note ---
Subjective Patient reports: feels better, pain is less, flatus, diarrhea, afebrile Narrative: Note initiated : 03/20/20 at 4:45 pm Service Date, if different from initiated Date: [] Patient: Unruly Fink 59 y/o M admitted on 03/18/20 for Hemeroids and R buttock pain. Chief Complaint: [] Objective Temp Pulse Resp BP Pulse Ox 97.9 F 59 L 16 118/77 95 03/20/20 15:42 03/20/20 15:42 03/20/20 15:42 03/20/20 15:42 03/20/20 15:42 - Additional Data Intake & Output - Last 24 hours: Intake & Output 03/18/20 03/19/20 03/20/20 03/21/20 05:59 05:59 05:59 05:59 Intake Total 2100 4690 4409.0909 2260 Output Total 1150 2350 1575 550 Balance 950 2340 2834.0909 1710 Weight 277 lb 6.4 oz 281 lb 1 oz 283 lb 4.8 oz 283 lb 4.8 oz - Labs 03/20/20 05:30 03/20/20 05:30 Diabetes panel 03/20/20 Range/Units 05:30 Sodium 139 (133-145) mmol/L Potassium 3.5 (3.3-5.1) mmol/L Chloride 103 (96-108) mmol/L Carbon Dioxide 24 (22-30) mmol/L BUN 14 (6-20) mg/dl Creatinine 1.1 (0.7-1.2) mg/dl Glucose 82 (70-105) mg/dL Calcium 8.4 L (8.6-10.4) mg/dl AST 35 (0-37) U/l ALT 27 (0-40) U/l Alkaline Phosphatase 49 (39-117) U/L Total Protein 5.6 L (5.9-8.4) gm/dL Albumin 2.9 L (3.2-5.2) gm/dL Triglycerides 93 (<150) mg/dl Calcium panel 03/20/20 Range/Units 05:30 Calcium 8.4 L (8.6-10.4) mg/dl Phosphorus 2.5 L (2.7-4.5) mg/dL Albumin 2.9 L (3.2-5.2) gm/dL Pituitary panel 03/20/20 Range/Units 05:30 Sodium 139 (133-145) mmol/L Potassium 3.5 (3.3-5.1) mmol/L Chloride 103 (96-108) mmol/L Carbon Dioxide 24 (22-30) mmol/L BUN 14 (6-20) mg/dl Creatinine 1.1 (0.7-1.2) mg/dl Glucose 82 (70-105) mg/dL Calcium 8.4 L (8.6-10.4) mg/dl Adrenal panel 03/20/20 Range/Units 05:30 Sodium 139 (133-145) mmol/L Potassium 3.5 (3.3-5.1) mmol/L Chloride 103 (96-108) mmol/L Carbon Dioxide 24 (22-30) mmol/L BUN 14 (6-20) mg/dl Creatinine 1.1 (0.7-1.2) mg/dl Glucose 82 (70-105) mg/dL Calcium 8.4 L (8.6-10.4) mg/dl Total Bilirubin 0.5 (0.0-1.0) mg/dL AST 35 (0-37) U/l ALT 27 (0-40) U/l Alkaline Phosphatase 49 (39-117) U/L Total Protein 5.6 L (5.9-8.4) gm/dL Albumin 2.9 L (3.2-5.2) gm/dL Assessment and Plan (1) Perirectal abscess Status: Acute Assessment and plan: Clinically improved over the past 24 hours Current Visit: Yes (2) Prostatitis Status: Acute Assessment and plan: Small amount of bleeding per catheter with urine flow is adequate Current Visit: No - Time Spent With Patient Total time spent is greater than 50% in coordination of care (as documented) at patient's floor/unit and/or counseling patient:
[2020-03-20] MEDS: LOPERAMIDE 2 MG CAPSULE PO PRN (17:25)
[2020-03-20] MEDS ORDERED: POTASSIUM PHOSPHATE 40 MEQ in DEXTROSE 5% IN WATER 500 ML IV ONE (18:00)
[2020-03-21] MEDS: 0.9 % SODIUM CHLORIDE 1,000 ML IV SCH ×6 (02:42→21:04)
[2020-03-21] MEDS: PIPERACILLIN SODIUM/TAZOBACTAM 3.375 GM in DEXTROSE 5% IN WATER 50 ML IV SCH ×4 (05:26→23:41)
[2020-03-21] MEDS: KETOROLAC 30 MG/ML VIAL IV SCH (05:27)
[2020-03-21] MEDS: LOPERAMIDE 2 MG CAPSULE PO PRN (05:30)
[2020-03-21] MEDS: 0.9 % SODIUM CHLORIDE 10 ML SYRINGE IV SCH ×3 (05:52→20:17)
[2020-03-21 07:11] LABS: Basophils # (Auto) 0.03 K/mcL (0.00-0.30); Basophils % (Auto) 0.3 % (0.0-2.0); Eosinophils # (Auto) 0.45 K/mcL (0.00-0.70); Eosinophils % (Auto) 4.5 % (0.0-7.0); Granulocytes % (Auto) 77.8 % (38.0-78.0); Hemoglobin 13.9 g/dL (13.7-17.5); Lymphocytes # (Auto) 0.85 K/mcL (1.50-4.80); Lymphocytes % (Auto) 8.5 % (15.5-49.0); Mean Cell Volume 92.5 fL (80.0-100.0); Mean Corpuscular HGB Conc 33.1 g/dL (31.0-36.0); Mean Platelet Volume 9.8 fL (7.4-10.4); Monocytes # (Auto) 0.89 K/mcL (0.10-0.90); Monocytes % (Auto) 8.9 % (1.0-12.0); Platelet Count 274 K/mcL (140-440); RBC 4.54 M/mcL (4.63-6.08); Red Cell Distribution Width 12.4 % (11.5-14.5)
[2020-03-21 07:34] LABS: ALT/SGPT 40 U/l (0-40); AST/SGOT 46 U/l (0-37); Albumin/Globulin Ratio 0.9 (1.0-2.3); Alkaline Phosphatase 56 U/L (39-117); Bilirubin,Total 0.4 mg/dL (0.0-1.0); Blood Urea Nitrogen 12 mg/dl (6-20); Calcium 8.4 mg/dl (8.6-10.4); Carbon Dioxide 21 mmol/L (22-30); Chloride 108 mmol/L (96-108); Globulin 3.3 gm/dL (2.2-3.7); Glomerular Filtration Rate 73; Glucose 93 mg/dL (70-105); Lactate Dehydrogenase 267 U/L (94-250); Phosphorous 2.9 mg/dL (2.7-4.5); Triglycerides 116 mg/dl (<150); Uric Acid 3.8 mg/dL (2.5-8.0)
[2020-03-21 07:38] LABS: Bilirubin,Direct < 0.2 mg/dL (0.0-0.3)
[2020-03-21] MEDS: LOSARTAN 50 MG TABLET PO SCH (08:44)
[2020-03-21] MEDS: ENOXAPARIN 40 MG/0.4 ML SYRINGE SQ SCH (08:45)
--- NOTE | 2020-03-21 14:59 | General Surgery Progress Note ---
Subjective Patient reports: feels better, pain is less, flatus, diarrhea, afebrile Narrative: Note initiated : 03/21/20 at 2:45 pm Service Date, if different from initiated Date: [] Patient: Unruly Fink 59 y/o M admitted on 03/18/20 for Hemeroids and R buttock pain. Chief Complaint: [] Objective Temp Pulse Resp BP Pulse Ox 98.2 F 68 16 164/80 96 03/21/20 11:27 03/21/20 11:27 03/21/20 11:27 03/21/20 11:47 03/21/20 11:27 - Additional Data Intake & Output - Last 24 hours: Intake & Output 03/19/20 03/20/20 03/21/20 03/22/20 05:59 05:59 05:59 05:59 Intake Total 4690 4409.0909 4360 2140 Output Total 2350 1575 1650 Balance 2340 2834.0909 2710 2140 Weight 281 lb 1 oz 283 lb 4.8 oz 284 lb 12.8 oz - Labs 03/21/20 05:53 03/21/20 05:53 Diabetes panel 03/21/20 Range/Units 05:53 Sodium 140 (133-145) mmol/L Potassium 3.9 (3.3-5.1) mmol/L Chloride 108 (96-108) mmol/L Carbon Dioxide 21 L (22-30) mmol/L BUN 12 (6-20) mg/dl Creatinine 1.1 (0.7-1.2) mg/dl Glucose 93 (70-105) mg/dL Calcium 8.4 L (8.6-10.4) mg/dl AST 46 H (0-37) U/l ALT 40 (0-40) U/l Alkaline Phosphatase 56 (39-117) U/L Total Protein 6.3 (5.9-8.4) gm/dL Albumin 3.0 L (3.2-5.2) gm/dL Triglycerides 116 (<150) mg/dl Calcium panel 03/21/20 Range/Units 05:53 Calcium 8.4 L (8.6-10.4) mg/dl Phosphorus 2.9 (2.7-4.5) mg/dL Albumin 3.0 L (3.2-5.2) gm/dL Pituitary panel 03/21/20 Range/Units 05:53 Sodium 140 (133-145) mmol/L Potassium 3.9 (3.3-5.1) mmol/L Chloride 108 (96-108) mmol/L Carbon Dioxide 21 L (22-30) mmol/L BUN 12 (6-20) mg/dl Creatinine 1.1 (0.7-1.2) mg/dl Glucose 93 (70-105) mg/dL Calcium 8.4 L (8.6-10.4) mg/dl Adrenal panel 03/21/20 Range/Units 05:53 Sodium 140 (133-145) mmol/L Potassium 3.9 (3.3-5.1) mmol/L Chloride 108 (96-108) mmol/L Carbon Dioxide 21 L (22-30) mmol/L BUN 12 (6-20) mg/dl Creatinine 1.1 (0.7-1.2) mg/dl Glucose 93 (70-105) mg/dL Calcium 8.4 L (8.6-10.4) mg/dl Total Bilirubin 0.4 (0.0-1.0) mg/dL AST 46 H (0-37) U/l ALT 40 (0-40) U/l Alkaline Phosphatase 56 (39-117) U/L Total Protein 6.3 (5.9-8.4) gm/dL Albumin 3.0 L (3.2-5.2) gm/dL Assessment and Plan (1) Perirectal abscess Status: Acute Assessment and plan: Clinically improved over the past 24 hours Current Visit: Yes (2) Prostatitis Status: Acute Assessment and plan: Small amount of bleeding per catheter with urine flow is adequate Current Visit: No - Time Spent With Patient Total time spent is greater than 50% in coordination of care (as documented) at patient's floor/unit and/or counseling patient:
--- NOTE | 2020-03-21 15:06 | General Surgery Progress Note ---
Subjective Patient reports: feels better, pain is less, tolerating a regular diet, flatus, diarrhea, afebrile Narrative: Note initiated : 03/21/20 at 3:04 pm Service Date, if different from initiated Date: [] Patient: Unruly Fink 59 y/o M admitted on 03/18/20 for Hemeroids and R buttock pain. Chief Complaint: [patient is significantly improved. He has been afebrile. He no longer has perianal or rectal pain. White count 10,000, hemoglobin 13.9, hematocrit 42. His urinary drainage is bloody regular he no longer has the pressure sensation that he had previously..] Objective Temp Pulse Resp BP Pulse Ox 98.2 F 68 16 164/80 96 03/21/20 11:27 03/21/20 11:27 03/21/20 11:27 03/21/20 11:47 03/21/20 11:27 - Additional Data Intake & Output - Last 24 hours: Intake & Output 03/19/20 03/20/20 03/21/20 03/22/20 05:59 05:59 05:59 05:59 Intake Total 4690 4409.0909 4360 2140 Output Total 2350 1575 1650 Balance 2340 2834.0909 2710 2140 Weight 281 lb 1 oz 283 lb 4.8 oz 284 lb 12.8 oz - General physical appearance well developed, well nourished, no distress - Eyes PERRL, normal ocular movement - ENT normal pinna, normal nares, normal mucosa, no hearing loss, no congestion - Neck no masses, no bruits, trachea midline, no lymphadenopathy, no venous distension - Respiratory normal expansion, normal respiratory effort, clear to auscultation - Cardiovascular Cardiovascular exam: Present: normal rate and rhythm, RRR, +S1, +S2. Absent: JVD, tachycardia - Abdomen non tender, bowel sounds (present), surgical scars (none), masses (none) - Rectum no tenderness (no perianal tenderness; no tenderness buttocks) - Integumentary no rash, no growths, no abnormal pigmentation - Neurologic normal coordination, normal sensation - Musculoskeletal normal gait, normal posture - Psychiatric oriented to place, speech is normal, memory intact - Labs 03/21/20 05:53 03/21/20 05:53 Diabetes panel 03/21/20 Range/Units 05:53 Sodium 140 (133-145) mmol/L Potassium 3.9 (3.3-5.1) mmol/L Chloride 108 (96-108) mmol/L Carbon Dioxide 21 L (22-30) mmol/L BUN 12 (6-20) mg/dl Creatinine 1.1 (0.7-1.2) mg/dl Glucose 93 (70-105) mg/dL Calcium 8.4 L (8.6-10.4) mg/dl AST 46 H (0-37) U/l ALT 40 (0-40) U/l Alkaline Phosphatase 56 (39-117) U/L Total Protein 6.3 (5.9-8.4) gm/dL Albumin 3.0 L (3.2-5.2) gm/dL Triglycerides 116 (<150) mg/dl Calcium panel 03/21/20 Range/Units 05:53 Calcium 8.4 L (8.6-10.4) mg/dl Phosphorus 2.9 (2.7-4.5) mg/dL Albumin 3.0 L (3.2-5.2) gm/dL Pituitary panel 03/21/20 Range/Units 05:53 Sodium 140 (133-145) mmol/L Potassium 3.9 (3.3-5.1) mmol/L Chloride 108 (96-108) mmol/L Carbon Dioxide 21 L (22-30) mmol/L BUN 12 (6-20) mg/dl Creatinine 1.1 (0.7-1.2) mg/dl Glucose 93 (70-105) mg/dL Calcium 8.4 L (8.6-10.4) mg/dl Adrenal panel 03/21/20 Range/Units 05:53 Sodium 140 (133-145) mmol/L Potassium 3.9 (3.3-5.1) mmol/L Chloride 108 (96-108) mmol/L Carbon Dioxide 21 L (22-30) mmol/L BUN 12 (6-20) mg/dl Creatinine 1.1 (0.7-1.2) mg/dl Glucose 93 (70-105) mg/dL Calcium 8.4 L (8.6-10.4) mg/dl Total Bilirubin 0.4 (0.0-1.0) mg/dL AST 46 H (0-37) U/l ALT 40 (0-40) U/l Alkaline Phosphatase 56 (39-117) U/L Total Protein 6.3 (5.9-8.4) gm/dL Albumin 3.0 L (3.2-5.2) gm/dL Assessment and Plan (1) Perirectal abscess Status: Acute Assessment and plan: Clinically improved over the past 24 hours Current Visit: Yes (2) Prostatitis Status: Acute Assessment and plan: Discontinue Malave catheter Probable discharge home tomorrow Current Visit: No - Time Spent With Patient Total time spent is greater than 50% in coordination of care (as documented) at patient's floor/unit and/or counseling patient:
[2020-03-21] MEDS: HYDROmorphone 0.5 MG/0.5 ML SYRINGE IV PRN ×2 (17:46→23:41)
[2020-03-22] MEDS: 0.9 % SODIUM CHLORIDE 10 ML SYRINGE IV SCH ×3 (04:54→21:07)
[2020-03-22] MEDS: PIPERACILLIN SODIUM/TAZOBACTAM 3.375 GM in DEXTROSE 5% IN WATER 50 ML IV SCH ×3 (05:22→18:01)
[2020-03-22] MEDS: 0.9 % SODIUM CHLORIDE 1,000 ML IV SCH ×3 (05:22→21:10)
[2020-03-22] MEDS: LOSARTAN 50 MG TABLET PO SCH (08:30)
[2020-03-22] MEDS: ACETAMINOPHEN 325 MG TABLET PO PRN ×2 (14:59→21:08)
--- NOTE | 2020-03-22 18:46 | General Surgery Progress Note ---
Subjective Patient reports: feels better, pain is less, tolerating a regular diet, flatus, diarrhea, afebrile Narrative: Note initiated : 03/22/20 at 6:44 pm Service Date, if different from initiated Date: [] Patient: Unruly Fink 59 y/o M admitted on 03/18/20 for Hemeroids and R buttock pain. Chief Complaint: [patient feels better. He has minimal perianal pain. His Malave catheter was discontinued and he voided multiple times but when variable volumes. He does have some urinary urgency and had 2 episodes of incontinence.] Objective Temp Pulse Resp BP Pulse Ox 98.8 F 54 L 20 141/71 94 03/22/20 15:39 03/22/20 15:39 03/22/20 15:39 03/22/20 15:39 03/22/20 15:39 - Additional Data Intake & Output - Last 24 hours: Intake & Output 03/20/20 03/21/20 03/22/20 03/23/20 05:59 05:59 05:59 05:59 Intake Total 4409.0909 4360 5430 1410 Output Total 1575 1650 3375 2865 Balance 2834.0909 2710 2055 -1455 Weight 283 lb 4.8 oz 284 lb 12.8 oz 292 lb 12.8 oz - General physical appearance well developed, well nourished, no distress - Eyes PERRL, normal ocular movement - ENT normal pinna, normal nares, normal mucosa, no hearing loss, no congestion - Neck no masses, no bruits, trachea midline, no lymphadenopathy, no venous distension - Respiratory normal expansion, normal respiratory effort, clear to auscultation - Cardiovascular Cardiovascular exam: Present: normal rate and rhythm, RRR, +S1, +S2. Absent: JVD, tachycardia - Abdomen non tender, bowel sounds (present), surgical scars (none), masses (none) - Rectum no tenderness, no masses - Integumentary no rash, no growths, no abnormal pigmentation - Neurologic normal coordination, normal sensation - Musculoskeletal normal gait, normal posture - Psychiatric oriented to time, oriented to person, oriented to place, speech is normal, memory intact - Labs 03/21/20 05:53 03/21/20 05:53 Assessment and Plan (1) Perirectal abscess Status: Acute Assessment and plan: Patient is clinically improved and can probably be discharged on oral medications tomorrow. Current Visit: Yes (2) Prostatitis Status: Acute Assessment and plan: Patient is voiding fairly well. If he continues to void well will discharge in the morning. PSA will be checked Current Visit: No - Time Spent With Patient Total time spent is greater than 50% in coordination of care (as documented) at patient's floor/unit and/or counseling patient:
[2020-03-22 20:07] LABS: C-Reactive Protein 4.2 mg/dl (0.0-0.8)
[2020-03-22 23:36] LABS: PSA W/Reflex Free PSA If Ind. 0.88 ng/ml
[2020-03-23] MEDS: PIPERACILLIN SODIUM/TAZOBACTAM 3.375 GM in DEXTROSE 5% IN WATER 50 ML IV SCH ×3 (00:23→11:42)
[2020-03-23] MEDS: 0.9 % SODIUM CHLORIDE 10 ML SYRINGE IV SCH ×2 (06:22→13:04)
[2020-03-23] MEDS: 0.9 % SODIUM CHLORIDE 1,000 ML IV SCH (06:49)
[2020-03-23] MEDS: LOPERAMIDE 2 MG CAPSULE PO PRN (08:50)
[2020-03-23] MEDS: LOSARTAN 50 MG TABLET PO SCH (08:50)
[2020-03-23] MEDS: ACETAMINOPHEN 325 MG TABLET PO PRN (08:51)
--- NOTE | 2020-03-23 12:59 | Discharge Summary ---
Providers - Providers Patient information: Note initiated : 03/23/20 at 12:53 pm Service Date, if different from initiated Date: [] Patient: Unruly Fink 59 y/o M admitted on 03/18/20 for Hemeroids and R buttock pain. Chief Complaint: [] Date of admission: 03/17/20 Discharge date: 03/23/20 Attending physician: Susan Myers Hospitalization Hospital Course: 59-year-old male admitted on 17 March for treatment of perirectal abscess. The patient had been treated for what was thought to be prostatitis. He was treated with Cipro and Flagyl. He did not seem to be improving and return to [facility] room where a CT scan was done and that showed apparent perirectal abscess that was close to the lateral aspect of the Prostate. The radiologist felt that it was not related to the prostate primarily but may be causing some suzanne- Prostatic inflammation.. The actual abscess cavity was only 11 mm and he did not have any palpable perianal mass though there was some induration in the medial buttock. Clinically and by CT there was not enough abscess fluid to drain so I elected to treat him with IV Zosyn. He has been treated with Zosyn since admission and has done well. He did have some difficulty with voiding and a Malave catheter was inserted. He had transient hematuria which is cleared. His white count has decreased from 12.8-10 and he is now voiding without pressure and without any symptoms. He does not have overt hematuria. Patient does not have significant pain and is stable for discharge home. I will continue him on ciprofloxacin and Flagyl for another 3 weeks as an outpatient. Discharge diagnosis: perirectal abscess Secondary discharge diagnosis: Prostatic inflammation with urinary retention Hematuria Reason for admission: perirectal pain and CT evidence of perirectal abscess Procedures: None Pertinent studies/significant findings: CT of pelvis with contrast Complications: None Exam Temp Pulse Resp BP Pulse Ox 98.0 F 64 22 141/89 94 03/23/20 12:03/23/20 12:03/23/20 12:03/23/20 12:03/23/20 12:00 - General physical appearance well developed, well nourished, no distress - Eyes PERRL, normal ocular movement - ENT normal pinna, normal nares, normal mucosa, no hearing loss, no congestion - Head Head exam IM: Present: atraumatic, normocephalic - Neck no masses, no bruits, trachea midline, no lymphadenopathy, no venous distension - Cardiovascular Cardiovascular exam IM: Present: normal rate and rhythm - Respiratory normal expansion, normal respiratory effort, clear to percussion, clear to auscultation - Abdomen Abdomen: Present: soft, non tender, bowel sounds Hernia: Present: none - Genitourinary Present: normal penis with no external lesions - Rectum Rectum: Present: normal sphincter tone, no hemorrhoids, no tenderness (no tenderness or induration of right buttock medially), no masses, no bleeding Hemorrhoids: Present: mild ( small external hemorrhoidal tags) - Integumentary Present: no rash, no growths, no abnormal pigmentation - Neurologic Present: normal coordination, normal sensation - Musculoskeletal Present: normal gait, normal posture - Psychiatric Present: oriented to time, oriented to person, oriented to place, speech is normal, memory intact Discharge Plan - Patient/Caregiver Discharge Instructions Activity: increase activity as tolerated Diet: Regular Diet Prescriptions: Ciprofloxacin [Cipro] 500 mg PO BID #40 tab Transmission Status: Pending to [facility] metroNIDAZOLE [Flagyl] 500 mg PO Q8 #60 tab Transmission Status: Pending to [facility] - Follow up Plan Follow up with: Jad Beavers ARNP [Primary Care Provider] - Disposition: Home, Self-Care Prognosis: Good Rehab Potential: Good I certify that the patient requires SNF services.: No Overall status at discharge: patient is progressing back to baseline Pending Studies Resuscitation Status Full Code Diet Regular Diet Start Sat Mar 13 1120 Acetaminophen (Tylenol) 650 mg PO Q6HP PRN; Protocol PRN Reason: Per Pain Protocol/Fever > 101 Last Admin: 03/23/20 08:51 Dose: 650 mg Documented by: Admin: 03/22/20 21:08 Dose: 650 mg Documented by: Admin: 03/22/20 14:59 Dose: 650 mg Documented by: ALEXIS Hydromorphone HCl (Dilaudid) 0.5 mg IV Q2HP PRN; Protocol PRN Reason: Per Pain Protocol Last Admin: 03/21/20 23:41 Dose: 0.5 mg Documented by: Admin: 03/21/20 17:46 Dose: 0.5 mg Documented by: Admin: 03/20/20 05:47 Dose: 0.5 mg Documented by: Admin: 03/19/20 23:33 Dose: 0.5 mg Documented by: Admin: 03/19/20 19:35 Dose: 0.5 mg Documented by: Admin: 03/19/20 09:48 Dose: 0.5 mg Documented by: Admin: 03/19/20 05:31 Dose: 0.5 mg Documented by: Admin: 03/19/20 02:32 Dose: 0.5 mg Documented by: Admin: 03/18/20 23:58 Dose: 0.5 mg Documented by: Admin: 03/18/20 21:46 Dose: 0.5 mg Documented by: Admin: 03/18/20 14:11 Dose: 0.5 mg Documented by: Admin: 03/18/20 08:59 Dose: 0.5 mg Documented by: Admin: 03/18/20 04:10 Dose: 0.5 mg Documented by: Admin: 03/18/20 00:20 Dose: 0.5 mg Documented by: JOSE Sodium Chloride (Sodium Chloride 0.9%) 1,000 mls @ 125 mls/hr IV .Q8H [facility] Admin: 03/23/20 06:49 Dose: Not Given Documented by: Admin: 03/22/20 21:10 Dose: Not Given Documented by: Admin: 03/22/20 15:00 Dose: 125 mls/hr Documented by: Infusion: 03/22/20 13:22 Dose: 125 mls/hr Documented by: Admin: 03/22/20 05:22 Dose: 125 mls/hr Documented by: SANDERNSMONTY Infusion: 03/22/20 04:44 Dose: 125 mls/hr Documented by: SANDERNSMONTY Admin: 03/21/20 21:04 Dose: Not Given Documented by: SANDERNSMONTY Admin: 03/21/20 20:44 Dose: 125 mls/hr Documented by: Infusion: 03/21/20 19:38 Dose: 125 mls/hr Documented by: Admin: 03/21/20 17:16 Dose: Not Given Documented by: Admin: 03/21/20 11:38 Dose: 125 mls/hr Documented by: Infusion: 03/21/20 10:42 Dose: 125 mls/hr Documented by: Admin: 03/21/20 07:33 Dose: Not Given Documented by: Admin: 03/21/20 02:42 Dose: 125 mls/hr Documented by: Admin: 03/20/20 21:46 Dose: Not Given Documented by: Infusion: 03/20/20 20:41 Dose: 125 mls/hr Documented by: Admin: 03/20/20 18:22 Dose: Not Given Documented by: Admin: 03/20/20 12:41 Dose: 125 mls/hr Documented by: Infusion: 03/20/20 11:43 Dose: 125 mls/hr Documented by: Admin: 03/20/20 03:43 Dose: 125 mls/hr Documented by: Infusion: 03/20/20 02:05 Dose: 125 mls/hr Documented by: Admin: 03/19/20 23:32 Dose: Not Given Documented by: Admin: 03/19/20 18:05 Dose: 125 mls/hr Documented by: Infusion: 03/19/20 13:05 Dose: 0 mls/hr Documented by: Admin: 03/19/20 08:24 Dose: Not Given Documented by: Admin: 03/19/20 03:56 Dose: 125 mls/hr Documented by: Infusion: 03/19/20 03:00 Dose: 125 mls/hr Documented by: Admin: 03/18/20 23:57 Dose: Not Given Documented by: Admin: 03/18/20 19:00 Dose: 125 mls/hr Documented by: Infusion: 03/18/20 17:03 Dose: 125 mls/hr Documented by: Admin: 03/18/20 14:54 Dose: Not Given Documented by: Admin: 03/18/20 09:03 Dose: 125 mls/hr Documented by: Infusion: 03/18/20 08:23 Dose: 125 mls/hr Documented by: Admin: 03/18/20 00:23 Dose: 125 mls/hr Documented by: JOSE Piperacillin Sod/Tazobactam (Sod 3.375 gm/ Dextrose) 50 mls @ 100 mls/hr IV Q6H THOMAS; Protocol Last Admin: 03/23/20 11:42 Dose: 100 mls/hr Documented by: Infusion: 03/23/20 06:40 Dose: 0 mls/hr Documented by: Admin: 03/23/20 05:37 Dose: 100 mls/hr Documented by: Infusion: 03/23/20 00:53 Dose: 100 mls/hr Documented by: Admin: 03/23/20 00:23 Dose: 100 mls/hr Documented by: Infusion: 03/22/20 18:31 Dose: 100 mls/hr Documented by: Admin: 03/22/20 18:01 Dose: 100 mls/hr Documented by: Infusion: 03/22/20 12:35 Dose: 0 mls/hr Documented by: Admin: 03/22/20 12:05 Dose: 100 mls/hr Documented by: [email or web address] Infusion: 03/22/20 05:52 Dose: 100 mls/hr Documented by: [email or web address] Admin: 03/22/20 05:22 Dose: 100 mls/hr Documented by: Infusion: 03/22/20 00:11 Dose: 100 mls/hr Documented by: Admin: 03/21/20 23:41 Dose: 100 mls/hr Documented by: Infusion: 03/21/20 18:14 Dose: 100 mls/hr Documented by: Admin: 03/21/20 17:44 Dose: 100 mls/hr Documented by: Infusion: 03/21/20 12:20 Dose: 0 mls/hr Documented by: Admin: 03/21/20 11:50 Dose: 100 mls/hr Documented by: Infusion: 03/21/20 06:00 Dose: 0 mls/hr Documented by: Admin: 03/21/20 05:26 Dose: 100 mls/hr Documented by: Infusion: 03/21/20 00:05 Dose: 100 mls/hr Documented by: Admin: 03/20/20 23:35 Dose: 100 mls/hr Documented by: Infusion: 03/20/20 18:15 Dose: 0 mls/hr Documented by: Admin: 03/20/20 17:32 Dose: 100 mls/hr Documented by: Infusion: 03/20/20 13:25 Dose: 0 mls/hr Documented by: Admin: 03/20/20 12:46 Dose: 100 mls/hr Documented by: Infusion: 03/20/20 06:18 Dose: 100 mls/hr Documented by: Admin: 03/20/20 05:48 Dose: 100 mls/hr Documented by: Infusion: 03/20/20 00:47 Dose: 0 mls/hr Documented by: Admin: 03/19/20 23:42 Dose: 100 mls/hr Documented by: Infusion: 03/19/20 19:34 Dose: 0 mls/hr Documented by: Admin: 03/19/20 18:15 Dose: 100 mls/hr Documented by: Infusion: 03/19/20 13:14 Dose: 0 mls/hr Documented by: Admin: 03/19/20 12:27 Dose: 100 mls/hr Documented by: Infusion: 03/19/20 06:10 Dose: 0 mls/hr Documented by: Admin: 03/19/20 05:32 Dose: 100 mls/hr Documented by: Infusion: 03/19/20 00:30 Dose: 0 mls/hr Documented by: Admin: 03/18/20 23:58 Dose: 100 mls/hr Documented by: Infusion: 03/18/20 19:15 Dose: 0 mls/hr Documented by: Admin: 03/18/20 17:40 Dose: 100 mls/hr Documented by: Infusion: 03/18/20 13:57 Dose: 0 mls/hr Documented by: Admin: 03/18/20 12:45 Dose: 100 mls/hr Documented by: Infusion: 03/18/20 05:35 Dose: 0 mls/hr Documented by: Admin: 03/18/20 05:04 Dose: 100 mls/hr Documented by: Infusion: 03/18/20 00:45 Dose: 0 mls/hr Documented by: Admin: 03/18/20 00:15 Dose: 100 mls/hr Documented by: JOSE Loperamide HCl (Imodium) 2 mg PO PRN PRN PRN Reason: Diarrhea Last Admin: 03/23/20 08:50 Dose: 2 mg Documented by: Admin: 03/21/20 05:30 Dose: 2 mg Documented by: Admin: 03/20/20 17:25 Dose: 2 mg Documented by: SEEMA Losartan Potassium (Cozaar) 100 mg PO DAILY [facility] Admin: 03/23/20 08:50 Dose: 100 mg Documented by: Admin: 03/22/20 08:30 Dose: 100 mg Documented by: Admin: 03/21/20 08:44 Dose: 100 mg Documented by: Admin: 03/20/20 10:51 Dose: 100 mg Documented by: Admin: 03/19/20 08:21 Dose: 100 mg Documented by: SEEMA Sodium Chloride (Saline Flush) 10 ml IV Q8 [facility] Last Admin: 03/23/20 06:22 Dose: Not Given Documented by: Admin: 03/22/20 21:07 Dose: Not Given Documented by: Admin: 03/22/20 13:56 Dose: Not Given Documented by: Admin: 03/22/20 04:54 Dose: Not Given Documented by: Admin: 03/21/20 20:17 Dose: Not Given Documented by: Admin: 03/21/20 14:00 Dose: Not Given Documented by: Admin: 03/21/20 05:52 Dose: Not Given Documented by: Admin: 03/20/20 20:24 Dose: Not Given Documented by: Admin: 03/20/20 14:04 Dose: Not Given Documented by: Admin: 03/20/20 04:15 Dose: Not Given Documented by: Admin: 03/19/20 20:54 Dose: Not Given Documented by: Admin: 03/19/20 13:14 Dose: Not Given Documented by: Admin: 03/19/20 04:49 Dose: Not Given Documented by: Admin: 03/18/20 21:42 Dose: Not Given Documented by: Admin: 03/18/20 13:57 Dose: Not Given Documented by: SEEMA Shift Summary 03/23/20 05:08 Shift Summary by Rupali Leon Alert and oriented, makes needs known. wanting to go home today, has received only Tylenol one time for pain with good relief, will update at bedside, independent in room. Several loose stools. Doing good for NOCs Initialized on 03/23/20 05:08 - END OF NOTE
== END 2020-03-23 14:50 | disposition home or self-care (01) | DRG 395 ==
LOC: ED 16:57 → MEDSUR 23:45 → INTOOBSV 23:47
PROVIDERS: ADMIT Family Medicine Adult Medicine; ATTEND Family Medicine Adult Medicine

== ENCOUNTER 2022-12-19 00:38 | Inpatient (IN) ==
[2022-12-19] MEDS ORDERED: IOPAMIDOL 100 ML BOTTLE IV ONE (00:39)
[2022-12-19] MEDS ORDERED: 0.9 % SODIUM CHLORIDE 1,000 ML IV ONE (01:24)
[2022-12-19] MEDS ORDERED: PIPERACILLIN SODIUM/TAZOBACTAM 4.5 GM in DEXTROSE 5% IN WATER 50 ML IV ONE (02:14)
[2022-12-19 02:25] LABS: Basophils # (Auto) 0.04 K/mcL (0.00-0.30); Basophils % (Auto) 0.4 % (0.0-2.0); Eosinophils # (Auto) 0.09 K/mcL (0.00-0.70); Eosinophils % (Auto) 0.9 % (0.0-7.0); Hematocrit 50.5 % (40.1-51.0); Hemoglobin 16.3 g/dL (13.7-17.5); Lymphocytes # (Auto) 0.67 K/mcL (1.50-4.80); Lymphocytes % (Auto) 6.4 % (15.5-49.0); Mean Cell Volume 95.3 fL (80.0-100.0); Mean Corpuscular HGB Conc 32.3 g/dL (31.0-36.0); Mean Platelet Volume 9.6 fL (8.8-12.5); Monocytes % (Auto) 10.5 % (1.0-12.0); Neutrophils % (Auto) 81.5 % (38.0-78.0); Platelet Count 199 K/mcL (140-440); WBC 10.5 K/mcL (4.5-11.0)
[2022-12-19 02:40] LABS: ALT/SGPT 26 U/L (<40); AST/SGOT 34 U/L (<40); Albumin 3.5 gm/dL (3.2-5.2); Alkaline Phosphatase 51 U/L (39-117); Bilirubin,Total 0.8 mg/dL (0.1-1.0); Blood Urea Nitrogen 16 mg/dL (8-23); Calcium 9.5 mg/dL (8.6-10.4); Carbon Dioxide 23 mmol/L (22-30); Chloride 101 mmol/L (96-108); Globulin 3.4 gm/dL (2.2-3.7); Glomerular Filtration Rate 80; Glucose 128 mg/dL (70-105)
[2022-12-19] MEDS ORDERED: morphine 4 MG/ML VIAL IV ONE (02:45)
[2022-12-19] MEDS ORDERED: ONDANSETRON 4 MG/2 ML VIAL ONE ×2 (02:54→13:55)
[2022-12-19] MEDS ORDERED: ONDANSETRON 4 MG/2 ML VIAL IV ONE (02:58)
[2022-12-19 03:47] LABS: Appearance,Urine CLEAR (Clear); Bilirubin,Urine Negative (Negative); Color,Urine YELLOW; Culture Indicated,Urine No; Glucose,Urine (UA) Negative (Negative); Ketones,Urine 20 mg/dL (Negative); Leukocyte Esterase,Urine Negative /uL (Negative); Nitrate,Urine Negative (Negative); Protein,Urine Negative (Negative); Specific Gravity,Urine 1.039 (1.000-1.035); Urine Blood Negative (Negative); Urobilinogen,Urine Negative
--- NOTE | 2022-12-19 03:57 | Emergency Department Note ---
Skin/Abscess/FB HPI General Chief complaint: Skin/Abscess/Rash Stated complaint: abscess on right butt cheek Time Seen by Provider: 12/19/22 01:05 Source: patient Mode of arrival: ambulatory Limitations: no limitations History of Present Illness HPI Narrative: Narrative: This is a 62-year-old male who presents with right buttock pain that started over the weekend he was seen by his primary care provider on Friday and concerns for cellulitis was prescribed Keflex he has taken almost 2 days worth and had worsening pain and swelling near his rectum and glued. He had a prior history of perirectal abscess that was treated conservatively 2 years ago. Related Data Home Medications Medication Instructions Recorded Confirmed ascorbic acid 1,000 1 packet PO QDAY 08/13/18 12/19/22 [id number] powder effervescent pack (Emergen-C) aspirin 81 mg chewable tablet 81 mg PO QDAY 08/13/18 12/19/22 (Ana Lilia Chewable Low Dose Aspirin) hydrochlorothiazide 25 mg tablet 25 mg PO DAILY 08/13/18 12/19/22 loratadine 10 mg tablet 10 mg PO QDAY 08/13/18 12/19/22 (Allerclear) losartan 100 mg tablet (Cozaar) 100 mg PO DAILY 08/13/18 12/19/22 atorvastatin 10 mg tablet 10 mg PO QDAY 12/19/22 12/19/22 Previous Rx's Medication Instructions Recorded ciprofloxacin HCl 500 mg tablet 500 mg PO BID acute diverticulitis 03/23/20 #40 tabs Allergies Allergy/AdvReac Type Severity Reaction Status Date / Time No Known Drug Allergies Allergy Verified 04/04/20 10:02 Review of Systems ROS ROS Narrative: Narrative: PFS Narrative Patient History Narrative: Narrative: Medical/Surgical/Family History All Active Problems (Updated 12/19/22 @ 13:19 by Susan Myers MD) Contusion (Acute) Prostatitis (Acute) Internal hemorrhoids (Acute) Perirectal abscess (Acute) Pulmonary nodule (Acute) Surgical History History of elbow surgery Left Family History Father Dementia Brother CAD (coronary artery disease) Myocardial infarction, Onset Age: 62 Social History Smoking Status: Former smoker Exam Narrative Narrative: Narrative: Vital signs noted General: Awake. Alert. No distress. HEENT: NCAT PERRL EOMI. No conjunctivitis. Membranes moist. Neck: Supple, trachea midline Cardiovascular: RRR. No murmur. No rubs. No gallops. Respiratory: No respiratory distress. Breath sounds equal. Lungs clear. Gastrointestinal: Soft. No tenderness Rectal: Significant erythema and induration to the right buttock Musculoskeletal: No pain. No soft tissue swelling. Good ROM. No signs injury Skin: Warm. Dry. No rash General Limitations: no limitations Course Vital Signs Vital signs: Vital Signs Temperature 98.3 F 12/19/22 00:40 Pulse Rate 89 12/19/22 00:40 Respiratory Rate 16 12/19/22 00:40 Blood Pressure 160/85 12/19/22 00:40 Pulse Oximetry (%) 95 12/19/22 00:40 Oxygen Delivery Method Room Air 12/19/22 00:40 Temperature 98.1 F 12/19/22 19:33 Pulse Rate 58 L 12/19/22 19:33 Respiratory Rate 18 12/19/22 19:33 Blood Pressure 114/73 12/19/22 19:33 Pulse Oximetry (%) 94 12/19/22 19:33 Oxygen Delivery Method Room Air 12/19/22 19:33 Oxygen Flow Rate (L/min) 6 12/19/22 14:56 MDM MDM Narrative Medical decision making narrative: Narrative: Patient presents to the emergency department with pain in the right buttock and rectum difficulty with urination. CBC, CMP were reviewed patient does not have significant leukocytosis his CRP is elevated at 11. CT scan shows a 6 x 4.8 x 4.1 right perirectal abscess. I have reviewed this imaging. I have spoke with Dr. Myers the patient will be admitted patient was given intravenous Zosyn, intravenous morphine, intravenous fluids and intravenous Zofran. Patient will be made n.p.o. Lab Data 12/19/22 01:52 12/19/22 01:52 Labs: Lab Results 12/19/22 12/19/22 12/19/22 Range/Units 01:52 01:52 01:52 WBC 10.5 (4.5-11.0) K/mcL RBC 5.30 (4.63-6.08) M/mcL Hgb 16.3 (13.7-17.5) g/dL Hct 50.5 (40.1-51.0) % MCV 95.3 (80.0-100.0) fL MCH 30.8 (26.0-34.0) pg MCHC 32.3 (31.0-36.0) g/dL RDW 13.0 (11.5-14.5) % Plt Count 199 (140-440) K/mcL MPV 9.6 (8.8-12.5) fL Immature Gran % (Auto) 0.3 (0.0-0.5) % Neut % (Auto) 81.5 H (38.0-78.0) % Lymph % (Auto) 6.4 L (15.5-49.0) % [place] % (Auto) 10.5 (1.0-12.0) % Eos % (Auto) 0.9 (0.0-7.0) % Baso % (Auto) 0.4 (0.0-2.0) % Lymph # (Auto) 0.67 L (1.50-4.80) K/mcL [place] # (Auto) 1.10 H (0.10-0.90) K/mcL Eos # (Auto) 0.09 (0.00-0.70) K/mcL Baso # (Auto) 0.04 (0.00-0.30) K/mcL Immature Gran # 0.03 (0.00-0.05) K/mcl Absolute Neutrophils 8.52 H (1.80-8.00) K/mcL Sodium 134 (133-145) mmol/L Potassium 4.0 (3.3-5.1) mmol/L Chloride 101 (96-108) mmol/L Carbon Dioxide 23 (22-30) mmol/L Anion Gap 10.0 (8.0-16.0) BUN 16 (8-23) mg/dL Creatinine 1.0 (0.7-1.2) mg/dL POC Creatinine GFR Calculation 80 Glucose 128 H (70-105) mg/dL Calcium 9.5 (8.6-10.4) mg/dL Total Bilirubin 0.8 (0.1-1.0) mg/dL AST 34 (<40) U/L ALT 26 (<40) U/L Alkaline Phosphatase 51 (39-117) U/L C-Reactive Protein 11.60 H (0.03-0.80) mg/dL Total Protein 6.9 (5.9-8.4) gm/dL Albumin 3.5 (3.2-5.2) gm/dL Globulin 3.4 (2.2-3.7) gm/dL Albumin/Globulin Ratio 1.0 (1.0-2.3) Urine Color Urine Appearance (Clear) Urine pH (5.0-9.0) Ur Specific [place] (1.000-1.035) Urine Protein (Negative) mg/dL Urine Glucose (UA) (Negative) mg/dL Urine Ketones (Negative) mg/dL Urine Occult Blood (Negative) mg/dL Urine Nitrate (Negative) Urine Bilirubin (Negative) mg/dL Urine Urobilinogen mg/dL Ur Leukocyte Esterase (Negative) /uL Ur Culture Indicated? 12/19/22 12/19/22 Range/Units 01:52 03:07 WBC (4.5-11.0) K/mcL RBC (4.63-6.08) M/mcL Hgb (13.7-17.5) g/dL Hct (40.1-51.0) % MCV (80.0-100.0) fL MCH (26.0-34.0) pg MCHC (31.0-36.0) g/dL RDW (11.5-14.5) % Plt Count (140-440) K/mcL MPV (8.8-12.5) fL Immature Gran % (Auto) (0.0-0.5) % Neut % (Auto) (38.0-78.0) % Lymph % (Auto) (15.5-49.0) % [place] % (Auto) (1.0-12.0) % Eos % (Auto) (0.0-7.0) % Baso % (Auto) (0.0-2.0) % Lymph # (Auto) (1.50-4.80) K/mcL [place] # (Auto) (0.10-0.90) K/mcL Eos # (Auto) (0.00-0.70) K/mcL Baso # (Auto) (0.00-0.30) K/mcL Immature Gran # (0.00-0.05) K/mcl Absolute Neutrophils (1.80-8.00) K/mcL Sodium (133-145) mmol/L Potassium (3.3-5.1) mmol/L Chloride (96-108) mmol/L Carbon Dioxide (22-30) mmol/L Anion Gap (8.0-16.0) BUN (8-23) mg/dL Creatinine (0.7-1.2) mg/dL POC Creatinine 1.2 GFR Calculation Glucose (70-105) mg/dL Calcium (8.6-10.4) mg/dL Total Bilirubin (0.1-1.0) mg/dL AST (<40) U/L ALT (<40) U/L Alkaline Phosphatase (39-117) U/L C-Reactive Protein (0.03-0.80) mg/dL Total Protein (5.9-8.4) gm/dL Albumin (3.2-5.2) gm/dL Globulin (2.2-3.7) gm/dL Albumin/Globulin Ratio (1.0-2.3) Urine Color Yellow Urine Appearance Clear (Clear) Urine pH 5.0 (5.0-9.0) Ur Specific [place] 1.039 (1.000-1.035) Urine Protein Negative (Negative) mg/dL Urine Glucose (UA) Negative (Negative) mg/dL Urine Ketones 20 A (Negative) mg/dL Urine Occult Blood Negative (Negative) mg/dL Urine Nitrate Negative (Negative) Urine Bilirubin Negative (Negative) mg/dL Urine Urobilinogen Negative mg/dL Ur Leukocyte Esterase Negative (Negative) /uL Ur Culture Indicated? No Discharge Plan Patient/Caregiver Discharge Instructions Pt seen by [employer]/[facility] only: No Clinical Impression: Perirectal abscess Activity: resume usual activities as tolerated Patient Disposition: Xfer As Outpt/Obs ([facility]) Discharge Date/Time: 12/19/22 05:03
[2022-12-19] MEDS ORDERED: ONDANSETRON 4 MG/2 ML VIAL IV PRN ×2 (04:21→14:22)
[2022-12-19] MEDS: morphine 4 MG/ML VIAL IV PRN ×3 (04:45→11:57)
[2022-12-19] MEDS: 0.9 % SODIUM CHLORIDE 1,000 ML IV SCH ×2 (05:32→16:08)
[2022-12-19] MEDS ORDERED: PIPERACILLIN SODIUM/TAZOBACTAM 3.375 GM in DEXTROSE 5% IN WATER 50 ML IV SCH ×2 (08:30→12:00)
--- NOTE | 2022-12-19 10:23 | Cat Scan Report ---
History: Deep abscess in the pelvis, right-sided perirectal swelling TECHNIQUE: Following injection of intravenous nonionic contrast the pelvis was imaged during the venous phase from above the iliac crests to the upper thighs. Sagittal and coronal reformats were created. The radiation exposure was limited using dose reduction technology. FINDINGS: There is a large perianal abscess on the right side. This extends inferiorly to the medial aspect of the right gluteal fold. It measures 5.6 x 7.5 cm in transverse dimension and 8 cm in length. There is no gas in the abscess. There is cellulitis and edema in the surrounding soft tissues. This is not causing bowel obstruction. No intrapelvic abscess or free fluid are present. There are couple diverticula in the descending and sigmoid colon but there is no diverticulitis. The appendix and small intestine are normal. Urinary bladder prostate and seminal vesicles are normal. There is no hernia. IMPRESSION: Large right-sided perianal abscess Interpreted and Authenticated by: Darell Saha 12/19/22
[2022-12-19] MEDS: PIPERACILLIN SODIUM/TAZOBACTAM 3.375 GM in DEXTROSE 5% IN WATER 50 ML IV SCH ×2 (11:46→17:46)
[2022-12-19] MEDS ORDERED: IPRATROPIUM/ALBUTEROL 3 ML AMPUL.NEB NEB PRN ×2 (13:18→14:22)
[2022-12-19] MEDS ORDERED: SCOPOLAMINE 1 PATCH PATCH TOPICAL PRN (13:18)
--- NOTE | 2022-12-19 13:20 | General Surg History&Physical ---
HPI History of Present Illness Patient information: Note initiated : 12/19/22 at 1:12 pm Service Date, if different from initiated Date: [] Patient: Unruly Fink a 62 y/o M admitted on 12/19/22 for abscess on right butt cheek. Chief Complaint: [] Chief complaint: Right perirectal abscess History of present illness: Mr. Fink is a 62 year old M admitted with perirectal abscess. The patient gives a history of having onset of right sided perianal pain on Friday. She was evaluated by her primary care provider and started on cephalexin. She did not have any improvement and was seen in the emergency room last evening. In the emergency room he was noted to have a very large hard mass in his right buttocks extending to the perianal space. CT confirms a very large right perirectal abscess. Patient is not septic but will had emergent incision and drainage. Review of Systems All systems: reviewed and no additional remarkable complaints except as stated PFSH PFSH All Active Problems (Updated 12/19/22 @ 13:19 by Susan Myers MD) Contusion (Acute) Prostatitis (Acute) Internal hemorrhoids (Acute) Perirectal abscess (Acute) Pulmonary nodule (Acute) Surgical History History of elbow surgery Left Family History Father Dementia Brother CAD (coronary artery disease) Myocardial infarction, Onset Age: 62 Social History smoking status: Never smoker MEDS/ALLERGIES Home Medications and Allergies Home Medications Medication Instructions Recorded Confirmed Type ascorbic acid 1,000 1 packet PO QDAY 08/13/18 12/19/22 History bo-[id number]-[id number] powder effervescent pack (Emergen-C) aspirin 81 mg chewable tablet 81 mg PO QDAY 08/13/18 12/19/22 History (Ana Lilia Chewable Low Dose Aspirin) hydrochlorothiazide 25 mg tablet 25 mg PO DAILY 08/13/18 12/19/22 History loratadine 10 mg tablet 10 mg PO QDAY 08/13/18 12/19/22 History (Allerclear) losartan 100 mg tablet (Cozaar) 100 mg PO DAILY 08/13/18 12/19/22 History ciprofloxacin HCl 500 mg tablet 500 mg PO BID acute diverticulitis 03/23/20 12/19/22 Rx #40 tabs atorvastatin 10 mg tablet 10 mg PO QDAY 12/19/22 12/19/22 History Allergies Allergy/AdvReac Type Severity Reaction Status Date / Time No Known Drug Allergies Allergy Verified 04/04/20 10:02 Physical Examination Vital Signs Vital signs: Temp Pulse Resp BP Pulse Ox O2 Del Method 98.8 F 83 20 129/62 94 Room Air 12/19/22 11:54 12/19/22 11:54 12/19/22 11:54 12/19/22 11:54 12/19/22 11:54 12/19/22 11:54 General physical appearance General physical exam: well developed, well nourished, moderate distress, severe pain and obese Eyes Eye exam: PERRL and normal ocular movement ENT ENT exam: normal mucosa Head Head exam IM: Present atraumatic, normal inspection and normocephalic Neck Neck exam: no masses, no bruits, trachea midline, no lymphadenopathy and no venous distension Cardiovascular Cardiovascular exam IM: Present normal rate and rhythm, JVD, RRR, +S1 and +S2 Respiratory Respiratory exam: normal expansion, normal respiratory effort and clear to auscultation Abdomen Abdomen: Present soft, non tender and bowel sounds (Normal active bowel sounds) Rectum Rectum: Present normal sphincter tone and other (Very large bulge of the right medial extending to the perirectal space with cellulitis) Integumentary Integumentary: Present no rash, no growths and no abnormal pigmentation Neurologic Neurologic: Present normal coordination and normal sensation Musculoskeletal Musculoskeletal: Present normal gait and normal posture Psychiatric Psychiatric: Present oriented to time, oriented to person, oriented to place, speech is normal and memory intact Results Labs 12/19/22 01:52 12/19/22 01:52 Labs: Abnormal lab results 12/19/22 12/19/22 12/19/22 Range/Units 01:52 01:52 03:07 Neut % (Auto) 81.5 H (38.0-78.0) % Lymph % (Auto) 6.4 L (15.5-49.0) % Lymph # (Auto) 0.67 L (1.50-4.80) K/mcL [place] # (Auto) 1.10 H (0.10-0.90) K/mcL Absolute Neutrophils 8.52 H (1.80-8.00) K/mcL Glucose 128 H (70-105) mg/dL C-Reactive Protein 11.60 H (0.03-0.80) mg/dL Urine Ketones 20 A (Negative) mg/dL Diabetes panel 12/19/22 Range/Units 01:52 Sodium 134 (133-145) mmol/L Potassium 4.0 (3.3-5.1) mmol/L Chloride 101 (96-108) mmol/L Carbon Dioxide 23 (22-30) mmol/L BUN 16 (8-23) mg/dL Creatinine 1.0 (0.7-1.2) mg/dL Glucose 128 H (70-105) mg/dL Calcium 9.5 (8.6-10.4) mg/dL AST 34 (<40) U/L ALT 26 (<40) U/L Alkaline Phosphatase 51 (39-117) U/L Total Protein 6.9 (5.9-8.4) gm/dL Albumin 3.5 (3.2-5.2) gm/dL Calcium panel 12/19/22 Range/Units 01:52 Calcium 9.5 (8.6-10.4) mg/dL Albumin 3.5 (3.2-5.2) gm/dL Pituitary panel 12/19/22 Range/Units 01:52 Sodium 134 (133-145) mmol/L Potassium 4.0 (3.3-5.1) mmol/L Chloride 101 (96-108) mmol/L Carbon Dioxide 23 (22-30) mmol/L BUN 16 (8-23) mg/dL Creatinine 1.0 (0.7-1.2) mg/dL Glucose 128 H (70-105) mg/dL Calcium 9.5 (8.6-10.4) mg/dL Adrenal panel 12/19/22 Range/Units 01:52 Sodium 134 (133-145) mmol/L Potassium 4.0 (3.3-5.1) mmol/L Chloride 101 (96-108) mmol/L Carbon Dioxide 23 (22-30) mmol/L BUN 16 (8-23) mg/dL Creatinine 1.0 (0.7-1.2) mg/dL Glucose 128 H (70-105) mg/dL Calcium 9.5 (8.6-10.4) mg/dL Total Bilirubin 0.8 (0.1-1.0) mg/dL AST 34 (<40) U/L ALT 26 (<40) U/L Alkaline Phosphatase 51 (39-117) U/L Total Protein 6.9 (5.9-8.4) gm/dL Albumin 3.5 (3.2-5.2) gm/dL All other labs normal. A/P Assessment and plan (1) Perirectal abscess: Status: Acute Comment: . Plan Patient has been started on Zosyn pending cultures Will need urgent incision and drainage of the large abscess Sepsis Sepsis Identified: No Time Spent With Patient Time: Total time spent is greater than 50% in coordination of care (as documented) at patient's floor/unit and/or counseling patient:
[2022-12-19] MEDS ORDERED: PROPOFOL 200 MG/20 ML VIAL IV ONE (13:55)
[2022-12-19] MEDS ORDERED: LIDOCAINE HCL/PF 100 MG/5 ML SYRINGE IV ONE (13:55)
[2022-12-19] MEDS ORDERED: MAGNESIUM SULFATE 2 GM/50 ML BAG IV ONE (13:55)
[2022-12-19] MEDS ORDERED: KETAMINE 50 MG/ML Syringe (ANEST) IV ONE (13:55)
[2022-12-19] MEDS ORDERED: DEXAMETHASONE 10 MG/ML VIAL ONE (13:55)
--- NOTE | 2022-12-19 14:06 | XRay Report ---
HISTORY: Preop for abscess drainage in the right buttock FINDINGS: The lungs are clear. The heart is mildly enlarged but magnified by portable technique and epicardial fat. Moderate amount of epicardial fat was seen on the prior chest CT done on 04/03/22. There is no congestive heart failure or pleural effusion. IMPRESSION: Mild cardiomegaly and no acute abnormality Interpreted and Authenticated by: Darell Saha 12/19/22
[2022-12-19] MEDS ORDERED: ACETAMINOPHEN 1,000 MG/100 ML BAG IV ONE (14:22)
[2022-12-19] MEDS ORDERED: PROMETHAZINE 25 MG/ML VIAL IV PRN (14:22)
[2022-12-19] MEDS ORDERED: LACTATED RINGERS 250 ML IV PRN (14:22)
[2022-12-19] MEDS ORDERED: diphenhydrAMINE 50 MG/ML VIAL IV PRN (14:22)
[2022-12-19] MEDS ORDERED: MEPERIDINE 25 MG/ML VIAL IV PRN (14:22)
[2022-12-19] MEDS ORDERED: NALOXONE HCL 0.4 MG/ML VIAL IV PRN (14:22)
[2022-12-19] MEDS ORDERED: fentaNYL 100 MCG/2 ML VIAL IV PRN (14:22)
[2022-12-19] MEDS ORDERED: METHOCARBAMOL 1,000 MG/10 ML VIAL IV PRN (14:22)
[2022-12-19] MEDS ORDERED: LACTATED RINGERS 1,000 ML IV SCH (14:30)
--- NOTE | 2022-12-19 14:47 | Brief Operative Note ---
Brief Operative Note Date of procedure: 12/19/22 Pre-op diagnosis: perirectal abscess;right Post-op diagnosis: other (perirectal abscess;right ) Procedure: incision and drainage of perirectal abscess;right Grafts/Implants: No Anesthesia: GLMA Findings: major abscess of right perirectal space extending to ischial spine large cavity extending about 6cm laterally and 8cm cephlad Complications: none Surgeon: Susan Myers Estimated blood loss (cc): 50 Specimens Removed/Pathology: other (10cc of pus in syringe) Condition: stable Disposition: PACU
[2022-12-20] MEDS: PIPERACILLIN SODIUM/TAZOBACTAM 3.375 GM in DEXTROSE 5% IN WATER 50 ML IV SCH ×4 (00:05→23:04)
[2022-12-20] MEDS: 0.9 % SODIUM CHLORIDE 1,000 ML IV SCH ×2 (05:07→09:15)
[2022-12-20 06:37] LABS: Basophils # (Auto) 0.01 K/mcL (0.00-0.30); Basophils % (Auto) 0.1 % (0.0-2.0); Eosinophils # (Auto) 0 K/mcL (0.00-0.70); Eosinophils % (Auto) 0 % (0.0-7.0); Hematocrit 45.9 % (40.1-51.0); Hemoglobin 14.9 g/dL (13.7-17.5); Lymphocytes # (Auto) 0.43 K/mcL (1.50-4.80); Lymphocytes % (Auto) 3.3 % (15.5-49.0); Mean Cell Volume 92.9 fL (80.0-100.0); Mean Corpuscular HGB Conc 32.5 g/dL (31.0-36.0); Mean Platelet Volume 10.1 fL (8.8-12.5); Monocytes # (Auto) 0.65 K/mcL (0.10-0.90); Monocytes % (Auto) 5.1 % (1.0-12.0); Neutrophils % (Auto) 91.2 % (38.0-78.0); Platelet Count 269 K/mcL (140-440); RBC 4.94 M/mcL (4.63-6.08); Red Cell Distribution Width 12.7 % (11.5-14.5); WBC 12.8 K/mcL (4.5-11.0)
--- NOTE | 2022-12-20 14:46 | General Surgery Progress Note ---
SUBJECTIVE Subjective Patient information: Note initiated : 12/20/22 at 2:43 pm Service Date, if different from initiated Date: [] Patient: Unruly Fink 62 y/o M admitted on 12/19/22 for abscess on right butt cheek. Chief Complaint: [] Principal diagnosis: Perirectal abscess Interval history: Patient continues to improve. He has decreased drainage. White blood count is 12.8, hemoglobin 14.9, hematocrit 45.9. He complains of some abdominal bloating and ineffective emptying of his bladder. Constitutional Vitals: Vital Signs Temp Pulse Resp BP Pulse Ox O2 Del Method O2 Flow Rate 98.7 F 73 14 126/60 97 Room Air 6 12/20/22 11:07 12/20/22 11:07 12/20/22 11:07 12/20/22 11:07 12/20/22 11:07 12/20/22 11:07 12/19/22 14:56 Period Temp Pulse Resp BP Sys/[place] Pulse Ox O2 Del Method O2 Flow Rate Last 24 Hr 97.2 F-98.7 F 53-78 14-19 102-151/56-78 93-98 Nasal Cannula- Room Air 6-6 Intake and Output 12/20/22 12/20/22 12/20/22 03:59 11:59 19:59 Intake Total 1100 Balance 1100 Intake & Output: Intake & Output 12/20/22 12/20/22 12/20/22 03:59 11:59 19:59 Intake Total 1100 Balance 1100 Intake: IV 1100 Sodium Chloride 0.9% 1,000 ml @ 1000 125 mls/hr IV .Q8H [facility] Rx#: [id number] Zosyn 3.375 gm In Dextrose 5% 100 in Water 50 ml @ 100 mls/hr IV Q6H [facility] Rx#:[id number] ENT ENT exam: Present normal exam and normal oropharynx Neck Neck exam: Present normal inspection Respiratory Respiratory exam: Present normal respiratory exam and CTAB Cardiovascular Cardiovascular exam: Present normal rate and rhythm, RRR, +S1 and +S2 GI/Abdominal GI/Abdominal exam: Present normal bowel sounds and soft; Absent distended Rectal Additional comments: Anal tone is intact; induration of the left buttock is significantly improved. Neurological Exam Neurological exam: Present oriented X3 and reflexes normal Psychiatric Psychiatric exam: Present normal affect and normal mood A/P Assessment and plan (1) Perirectal abscess: Status: Acute Comment: . (2) Urinary retention: Status: Acute Plan Continue IV antibiotics pending culture Flomax 0.4 mg daily MiraLAX twice daily Check labs in the morning Time Spent With Patient Time: Total time spent is greater than 50% in coordination of care (as documented) at patient's floor/unit and/or counseling patient:
--- NOTE | 2022-12-20 15:13 | EKG ---
[facility] Test Date: 2022-12-19 Pat Name: Unruly Fink Department: ICU Room: 116 Gender: Male [employer] Manager: : 1960 Requested By: Susan Myers Order Number: [id number] Reading MD: Leo Saha M.D. Measurements Intervals [place] Rate: 87 P: 51 NH: 157 QRS: 34 QRSD: 89 T: 30 QT: 351 QTc: 422 Interpretive Statements Sinus rhythm Possible anteroseptal infarct, old Electronically Signed On 12-20-2022 15:13:40 PDT by Leo Saha M.D. /store/[email or web address]/[id number].pdf
[2022-12-20] MEDS: TAMSULOSIN 0.4 MG CAPSULE PO SCH (21:20)
[2022-12-20] MEDS: POLYETHYLENE GLYCOL 3350 17 GM PACKET PO SCH (21:20)
[2022-12-21] MEDS: PIPERACILLIN SODIUM/TAZOBACTAM 3.375 GM in DEXTROSE 5% IN WATER 50 ML IV SCH ×5 (05:41→23:34)
[2022-12-21 06:32] LABS: Basophils # (Auto) 0.02 K/mcL (0.00-0.30); Basophils % (Auto) 0.2 % (0.0-2.0); Eosinophils # (Auto) 0.05 K/mcL (0.00-0.70); Eosinophils % (Auto) 0.5 % (0.0-7.0); Hematocrit 41.4 % (40.1-51.0); Hemoglobin 13.6 g/dL (13.7-17.5); Lymphocytes # (Auto) 1.12 K/mcL (1.50-4.80); Lymphocytes % (Auto) 10.2 % (15.5-49.0); Mean Corpuscular HGB Conc 32.9 g/dL (31.0-36.0); Mean Platelet Volume 10.4 fL (8.8-12.5); Monocytes # (Auto) 0.89 K/mcL (0.10-0.90); Monocytes % (Auto) 8.1 % (1.0-12.0); Neutrophils % (Auto) 80.6 % (38.0-78.0); Platelet Count 278 K/mcL (140-440); Red Cell Distribution Width 12.8 % (11.5-14.5)
[2022-12-21] MEDS: LOSARTAN 50 MG TABLET PO SCH (09:12)
[2022-12-21] MEDS: POLYETHYLENE GLYCOL 3350 17 GM PACKET PO SCH ×2 (09:12→20:22)
[2022-12-21] MEDS: HYDROCHLOROTHIAZIDE 25 MG TABLET PO SCH (09:12)
[2022-12-21] MEDS: LORATADINE 10 MG TABLET PO SCH (09:12)
[2022-12-21] MEDS: 0.9 % SODIUM CHLORIDE 1,000 ML IV SCH (11:26)
[2022-12-21] MEDS: TAMSULOSIN 0.4 MG CAPSULE PO SCH (20:22)
[2022-12-22] MEDS: PIPERACILLIN SODIUM/TAZOBACTAM 3.375 GM in DEXTROSE 5% IN WATER 50 ML IV SCH ×4 (06:01→23:13)
[2022-12-22 06:26] LABS: Basophils # (Auto) 0.05 K/mcL (0.00-0.30); Basophils % (Auto) 0.8 % (0.0-2.0); Eosinophils # (Auto) 0.21 K/mcL (0.00-0.70); Eosinophils % (Auto) 3.2 % (0.0-7.0); Hematocrit 42.9 % (40.1-51.0); Lymphocytes # (Auto) 1.69 K/mcL (1.50-4.80); Lymphocytes % (Auto) 25.7 % (15.5-49.0); Mean Cell Volume 92.3 fL (80.0-100.0); Mean Corpuscular HGB Conc 32.6 g/dL (31.0-36.0); Mean Platelet Volume 9.5 fL (8.8-12.5); Monocytes # (Auto) 0.64 K/mcL (0.10-0.90); Monocytes % (Auto) 9.7 % (1.0-12.0); Neutrophils % (Auto) 60.1 % (38.0-78.0); Platelet Count 303 K/mcL (140-440); RBC 4.65 M/mcL (4.63-6.08); Red Cell Distribution Width 12.9 % (11.5-14.5); WBC 6.6 K/mcL (4.5-11.0)
[2022-12-22 06:46] LABS: ALT/SGPT 89 U/L (<40); AST/SGOT 51 U/L (<40); Albumin 3.2 gm/dL (3.2-5.2); Albumin/Globulin Ratio 1.1 (1.0-2.3); Alkaline Phosphatase 49 U/L (39-117); Bilirubin,Direct < 0.2 mg/dL (0-0.3); Bilirubin,Total 0.2 mg/dL (0.1-1.0); Blood Urea Nitrogen 16 mg/dL (8-23); Calcium 8.9 mg/dL (8.6-10.4); Carbon Dioxide 25 mmol/L (22-30); Chloride 106 mmol/L (96-108); Globulin 2.9 gm/dL (2.2-3.7); Glomerular Filtration Rate 71; Glucose 111 mg/dL (70-105); Lactate Dehydrogenase 168 U/L (135-225); Phosphorous 3.1 mg/dL (2.5-4.5); Triglycerides 113 mg/dL (<150); Uric Acid 4.1 mg/dL (2.5-8.0)
[2022-12-22] MEDS: LOSARTAN 50 MG TABLET PO SCH (08:33)
[2022-12-22] MEDS: HYDROCHLOROTHIAZIDE 25 MG TABLET PO SCH (08:33)
[2022-12-22] MEDS: LORATADINE 10 MG TABLET PO SCH (08:33)
[2022-12-22] MEDS: POLYETHYLENE GLYCOL 3350 17 GM PACKET PO SCH ×2 (08:34→20:28)
--- NOTE | 2022-12-22 12:31 | General Surgery Progress Note ---
SUBJECTIVE Subjective Patient information: Note initiated : 12/22/22 at 12:28 pm Service Date, if different from initiated Date: [] Patient: Unruly Fink 62 y/o M admitted on 12/20/22 for abscess on right butt cheek. Chief Complaint: [] Principal diagnosis: Perirectal abscess Interval history: Patient continues to improve. His pain is controlled. Wound has minimal drainage. Induration and cellulitis is significantly improved. White blood count 6.6, hemoglobin 14.0, potassium, BUN, creatinine are normal. Constitutional Vitals: Vital Signs Temp Pulse Resp BP Pulse Ox O2 Del Method O2 Flow Rate 97.4 F 82 18 118/74 98 Room Air 6 12/22/22 12:00 12/22/22 12:00 12/22/22 12:00 12/22/22 12:00 12/22/22 12:00 12/22/22 12:00 12/22/22 04:00 Period Temp Pulse Resp BP Sys/[place] Pulse Ox O2 Del Method O2 Flow Rate Last 24 Hr 97.3 F-98.3 F 53-82 16-20 118-139/63-74 96-98 Nasal Cannula- Room Air 6 Intake and Output 12/22/22 12/22/22 12/22/22 03:59 11:59 19:59 Intake Total 50 50 Output Total 850 Balance -800 50 Weight 280 lb 9.6 oz Intake & Output: Intake & Output 12/22/22 12/22/22 12/22/22 03:59 11:59 19:59 Intake Total 50 50 Output Total 850 Balance -800 50 Weight 280 lb 9.6 oz Intake: IV 50 50 Zosyn 3.375 gm In Dextrose 5% 50 50 in Water 50 ml @ 100 mls/hr IV Q6H [facility] Rx#:[id number] Oral 0 Output: Urine Catheter Amount 850 Other: Urine Appearance Cloudy Urine Color Light Sydnie Straight Dark Yellow Stool Size Moderate Stool Color Brown Stool Consistency Loose ENT ENT exam: Present normal exam and normal oropharynx Neck Neck exam: Present normal inspection Respiratory Respiratory exam: Present normal respiratory exam and CTAB Cardiovascular Cardiovascular exam: Present normal rate and rhythm, RRR, +S1 and +S2 GI/Abdominal GI/Abdominal exam: Present normal bowel sounds and soft; Absent distended Rectal Additional comments: Anal tone is intact; induration of the left buttock is significantly improved. Neurological Exam Neurological exam: Present oriented X3 and reflexes normal Psychiatric Psychiatric exam: Present normal affect and normal mood A/P Assessment and plan (1) Perirectal abscess: Status: Acute Comment: . (2) Urinary retention: Status: Acute Plan Continue IV antibiotics pending culture Flomax 0.4 mg daily MiraLAX twice daily Check labs in the morning Discontinue Malave catheter Time Spent With Patient Time: Total time spent is greater than 50% in coordination of care (as documented) at patient's floor/unit and/or counseling patient:
[2022-12-22] MEDS: TAMSULOSIN 0.4 MG CAPSULE PO SCH (20:28)
[2022-12-23] MEDS: PIPERACILLIN SODIUM/TAZOBACTAM 3.375 GM in DEXTROSE 5% IN WATER 50 ML IV SCH ×2 (05:01→11:35)
[2022-12-23 06:44] LABS: Basophils # (Auto) 0.05 K/mcL (0.00-0.30); Basophils % (Auto) 0.7 % (0.0-2.0); Eosinophils # (Auto) 0.27 K/mcL (0.00-0.70); Eosinophils % (Auto) 3.8 % (0.0-7.0); Hematocrit 45.1 % (40.1-51.0); Hemoglobin 14.9 g/dL (13.7-17.5); Lymphocytes # (Auto) 1.45 K/mcL (1.50-4.80); Lymphocytes % (Auto) 20.5 % (15.5-49.0); Mean Cell Volume 91.3 fL (80.0-100.0); Mean Platelet Volume 9.7 fL (8.8-12.5); Monocytes # (Auto) 0.58 K/mcL (0.10-0.90); Monocytes % (Auto) 8.2 % (1.0-12.0); Platelet Count 323 K/mcL (140-440); RBC 4.94 M/mcL (4.63-6.08); Red Cell Distribution Width 12.7 % (11.5-14.5); WBC 7.1 K/mcL (4.5-11.0)
[2022-12-23 07:39] LABS: ALT/SGPT 97 U/L (<40); AST/SGOT 46 U/L (<40); Albumin 3.3 gm/dL (3.2-5.2); Albumin/Globulin Ratio 1.2 (1.0-2.3); Alkaline Phosphatase 52 U/L (39-117); Bilirubin,Direct < 0.2 mg/dL (0-0.3); Bilirubin,Total 0.3 mg/dL (0.1-1.0); Blood Urea Nitrogen 15 mg/dL (8-23); Calcium 9.6 mg/dL (8.6-10.4); Carbon Dioxide 23 mmol/L (22-30); Chloride 105 mmol/L (96-108); Globulin 2.8 gm/dL (2.2-3.7); Glomerular Filtration Rate 71; Glucose 130 mg/dL (70-105); Lactate Dehydrogenase 190 U/L (135-225); Phosphorous 3.5 mg/dL (2.5-4.5); Triglycerides 155 mg/dL (<150); Uric Acid 3.8 mg/dL (2.5-8.0)
[2022-12-23] MEDS: HYDROCHLOROTHIAZIDE 25 MG TABLET PO SCH (08:23)
[2022-12-23] MEDS: POLYETHYLENE GLYCOL 3350 17 GM PACKET PO SCH (08:24)
[2022-12-23] MEDS: LORATADINE 10 MG TABLET PO SCH (08:24)
[2022-12-23] MEDS: LOSARTAN 50 MG TABLET PO SCH (08:24)
--- NOTE | 2022-12-23 15:21 | Discharge Summary ---
Discharge Provider Provider IMPORTANT FOLLOW-UP INFORMATION FOR PCP: Patient information: Note initiated : 12/23/22 at 3:18 pm Service Date, if different from initiated Date: [] Patient: Unruly Fink 62 y/o M admitted on 12/20/22 for abscess on right butt cheek. Chief Complaint: [] Date of admission: 12/20/22 14:45 Discharge date: 12/23/22 Primary care physician: Krunal De Souza DO Admitting clinician: Susan Myers Attending physician on admission: Susan Myers Consults: 12/20/22 07:25 Consult to Physician [CONS] Routine Comment: Consulting Provider: Susan Myers Reason For Exam: Physician to Consult Attending physician on discharge: Susan Myers Discharging clinician: Susan Myers COURSE Hospital Course Hospital course: 62-year-old male who presented with a large perirectal abscess. He was started on antibiotics and underwent incision and drainage on 20 December 2022. His white count has trended to normal. He has minimal drainage at this time and is stable for discharge home. Discharge diagnosis: Perirectal abscess Secondary discharge diagnosis: Urinary retention Reason for admission: Perirectal abscess Procedures: Incision and drainage of perirectal abscess. Pertinent studies/significant findings: CT of the abdomen and pelvis Complications: None Time Spent with Patient Time attestation: Total time spent providing and/or coordinating discharge services: Time spent: Less than 30 minutes Physical Examination Vital Signs Vital signs: Temp Pulse Resp BP Pulse Ox O2 Del Method O2 Flow Rate 97.3 F 56 L 16 133/75 95 Room Air 6 12/23/22 11:43 12/23/22 11:43 12/23/22 11:43 12/23/22 11:43 12/23/22 11:43 12/23/22 11:43 12/22/22 16:00 General physical appearance General physical exam: well developed, well nourished, moderate distress, severe pain and obese Eyes Eye exam: PERRL and normal ocular movement ENT ENT exam: normal mucosa Head Head exam IM: Present atraumatic, normal inspection and normocephalic Neck Neck exam: no masses, no bruits, trachea midline, no lymphadenopathy and no venous distension Cardiovascular Cardiovascular exam IM: Present normal rate and rhythm, JVD, RRR, +S1 and +S2 Respiratory Respiratory exam: normal expansion, normal respiratory effort and clear to auscultation Abdomen Abdomen: Present soft, non tender and bowel sounds (Normal active bowel sounds) Rectum Rectum: Present normal sphincter tone and other ( mildly drain right perirectal abscess cavity with clean base) Integumentary Integumentary: Present no rash, no growths and no abnormal pigmentation Neurologic Neurologic: Present normal coordination and normal sensation Musculoskeletal Musculoskeletal: Present normal gait and normal posture Psychiatric Psychiatric: Present oriented to time, oriented to person, oriented to place, speech is normal and memory intact Discharge Plan Patient/Caregiver Discharge Instructions Activity: resume usual activities as tolerated Diet: Regular Diet Instructions: Rectal Abscess (GEN), Abscess Incision and Drainage (DC) Prescriptions: New ciprofloxacin HCl [ciprofloxacin HCl] 500 mg tablet 500 mg PO BID Qty: 40 0RF oxycodone-acetaminophen [Endocet] 10-325 mg tablet 1 tab PO Q4H PRN (Reason: Pain) Qty: 40 0RF No Action aspirin [Ana Lilia Chewable Aspirin] 81 MG tablet,chewable 81 mg PO QDAY hydrochlorothiazide 25 MG tablet 25 mg PO DAILY losartan [Cozaar] 100 MG tablet 100 mg PO DAILY loratadine [Allerclear] 10 MG tablet 10 mg PO QDAY Emergen-C 1,000 MG powder effervescent in packet 1 packet PO QDAY ciprofloxacin HCl 500 MG tablet 500 mg PO BID Qty: 40 0RF atorvastatin 10 mg tablet 10 mg PO QDAY Prescription drug monitoring program results: PDMP not reviewed Follow Up Plan Follow up with: Susan Myers MD [Physician] - () Krunal De Souza DO [Primary Care Provider] - (Follow up as needed) Patient Disposition: Home, Self-Care Prognosis: Good Rehab Potential: Good I certify that the patient requires SNF services: No Overall status at discharge: patient is progressing back to baseline Discharge Orders: Discharge Order (Routine); Ordered 12/23/22 Ordered By: Susan Myers Pending Pending Pending: Resuscitation Status Full Code Diet Regular Diet Start FriDec 22 704 Hydrochlorothiazide (Hydrochlorothiazide 25 Mg Tablet) 25 mg PO DAILY [facility] Last Admin: 12/23/22 08:23 Dose: 25 mg Documented By: Admin: 12/22/22 08:33 Dose: 25 mg Documented By: Admin: 12/21/22 09:12 Dose: 25 mg Documented By: JAVED Piperacillin Sod/Tazobactam (Sod 3.375 gm/ Dextrose) 50 mls @ 100 mls/hr IV Q6H [facility]; Protocol Last Infusion: 12/23/22 12:15 Dose: 0 mls/hr Documented By: Admin: 12/23/22 11:35 Dose: 100 mls/hr Documented By: Infusion: 12/23/22 05:52 Dose: 0 mls/hr Documented By: Admin: 12/23/22 05:01 Dose: 100 mls/hr Documented By: Infusion: 12/23/22 04:09 Dose: 0 mls/hr Documented By: Admin: 12/22/22 23:13 Dose: 100 mls/hr Documented By: Infusion: 12/22/22 18:00 Dose: 0 mls/hr Documented By: Admin: 12/22/22 17:24 Dose: 100 mls/hr Documented By: Infusion: 12/22/22 12:29 Dose: 0 mls/hr Documented By: Admin: 12/22/22 11:54 Dose: 100 mls/hr Documented By: Infusion: 12/22/22 06:33 Dose: 0 mls/hr Documented By: Admin: 12/22/22 06:01 Dose: 100 mls/hr Documented By: Infusion: 12/22/22 00:05 Dose: 0 mls/hr Documented By: Admin: 12/21/22 23:34 Dose: 100 mls/hr Documented By: Infusion: 12/21/22 18:00 Dose: 0 mls/hr Documented By: Admin: 12/21/22 17:22 Dose: 100 mls/hr Documented By: Infusion: 12/21/22 12:55 Dose: 0 mls/hr Documented By: Admin: 12/21/22 12:07 Dose: 100 mls/hr Documented By: Infusion: 12/21/22 06:35 Dose: 0 mls/hr Documented By: Admin: 12/21/22 05:41 Dose: 100 mls/hr Documented By: Infusion: 12/21/22 04:09 Dose: 0 mls/hr Documented By: Admin: 12/21/22 00:00 Dose: 100 mls/hr Documented By: Admin: 12/20/22 23:04 Dose: Not Given Documented By: Infusion: 12/20/22 12:16 Dose: 100 mls/hr Documented By: Admin: 12/20/22 11:46 Dose: 100 mls/hr Documented By: Infusion: 12/20/22 09:14 Dose: 0 mls/hr Documented By: Admin: 12/20/22 07:04 Dose: 100 mls/hr Documented By: Infusion: 12/20/22 05:06 Dose: 0 mls/hr Documented By: Admin: 12/20/22 00:05 Dose: 100 mls/hr Documented By: Infusion: 12/19/22 18:16 Dose: 100 mls/hr Documented By: Admin: 12/19/22 17:46 Dose: 100 mls/hr Documented By: Infusion: 12/19/22 12:18 Dose: 0 mls/hr Documented By: [email or web address] Admin: 12/19/22 11:46 Dose: 100 mls/hr Documented By: DEVORAH Loratadine (Loratadine 10 Mg Tablet) 10 mg PO QDAY [facility] Last Admin: 12/23/22 08:24 Dose: 10 mg Documented By: Admin: 12/22/22 08:33 Dose: 10 mg Documented By: Admin: 12/21/22 09:12 Dose: 10 mg Documented By: JAVED Losartan Potassium (Losartan 50 Mg Tablet) 100 mg PO DAILY [facility] Last Admin: 12/23/22 08:24 Dose: 100 mg Documented By: Admin: 12/22/22 08:33 Dose: 100 mg Documented By: Admin: 12/21/22 09:12 Dose: 100 mg Documented By: JAVED Morphine Sulfate (Morphine 4 Mg/Ml Vial) 4 mg IV Q2HP PRN; Protocol PRN Reason: Per Pain Protocol Last Admin: 12/19/22 11:57 Dose: 4 mg Documented By: Admin: 12/19/22 06:54 Dose: 4 mg Documented By: Admin: 12/19/22 04:45 Dose: 4 mg Documented By: ALEXI Polyethylene Glycol (Polyethylene Glycol 3350 17 Gm Packet) 17 gm PO BID [facility] Admin: 12/23/22 08:24 Dose: Not Given Documented By: Admin: 12/22/22 20:28 Dose: Not Given Documented By: Admin: 12/22/22 08:34 Dose: Not Given Documented By: Admin: 12/21/22 20:22 Dose: Not Given Documented By: Admin: 12/21/22 09:12 Dose: Not Given Documented By: Admin: 12/20/22 21:20 Dose: Not Given Documented By: KAVON Tamsulosin HCl (Tamsulosin 0.4 Mg Capsule) 0.4 mg PO HS [facility] Admin: 12/22/22 20:28 Dose: 0.4 mg Documented By: Admin: 12/21/22 20:22 Dose: 0.4 mg Documented By: Admin: 12/20/22 21:20 Dose: 0.4 mg Documented By: KAVON Shift Summary 12/23/22 04:24 Shift Summary by Hoa Gutierrez LIVE Merged With [facility] Unruly Fink Male : 1960 MedRec# [id number] 12/23/22 04:51 - Shift Summary by Hoa Gutierrez RN Acct Num: [id number] : 1960 Patient Age: 62 Primary Diagnosis: Perirectal abscess Registration Status: Inpatient Med-Surg Date of Surgery (if applicable): 12/19 Pertinent Medical Dx/Issue(s): History of urinary retention Med management (antibiotics, diuretics, BP): IV antibiotics Skin/Wound Care: Surgical incision with alta drain and packing to gluteal fold; dressing changed x 3 ( 4x4 and ABD) - DO NOT REMOVE ALTA DRAIN, may reinforce with ABD and or gauze. Vital Signs with Trends: VSS O2, liter flow/saturations: RA Pain management (acute vs. chronic): Denies pain Lab/Rad (abnormals, trends): WBC 6.6 Neuro/Mental Status: A & O x 4 Urinary Elimination Device: Malave catheter removed, pt tolerated well, voiding per toilet and urinal Urinary output greater than 30mL/hr? yes Date of last BM: large loose x 2 Lines/Tubes: L hand IV SL patent Activity: SBA Recommendations/questions for MD: none at this time Discharge Plan (needs, disposition, etc): Wound care supplies Initialized on 12/23/22 04:24 - END OF NOTE
--- NOTE | 2022-12-30 08:47 | Operative Note ---
DATE OF OPERATION: 12/19/2022 DATE OF PROCEDURE: 12/19/2022 PREOPERATIVE DIAGNOSIS: Perirectal abscess, right buttock. POSTOPERATIVE DIAGNOSIS: Perirectal abscess, right buttock. PROCEDURE: Incision and drainage of perirectal abscess, right buttock. SURGEON: Susan Myers M.D. DESCRIPTION OF PROCEDURE: Under general anesthesia, the patient was placed in high lithotomy position. He had a massively bulging abscess extending from the perirectal abscess into the mid buttock on the right side. The abscess cavity was aspirated with an 18-gauge syringe and 10 mL of pus was sent for culture. Once this was done, using a 15 blade and electrocautery an incision was made into the very large abscess cavity. The cavity was explored digitally and it extended up to the ischial spine. There was a large cavity that extended 6 cm laterally into the buttock and 8 cm cephalad. Copious irrigation was carried out until the fluid appeared to be diluted. The superficial bleeding from the buttock subcutaneous tissue was controlled with electrocautery. The cavity was then packed with three sheets 8 x Exufiber that were cut in half and packed separately to try to obliterate the cavity. A drain was placed in the cavity through the initial opening and then brought out laterally through the thinnest portion of the inflamed subcutaneous tissue. This was a 1/4-inch drain and it was sutured with silk suture. A perineal pad was placed and briefs were placed to hold it in positioned. The patient was taken out of lithotomy and placed in supine position. He was extubated, and transferred to the postanesthetic care unit in satisfactory condition. LCS:aruna Job ID: [id number] Doc ID: [id number] Susan Myers M.D.
== END 2022-12-23 16:00 | disposition home or self-care (01) | DRG 330 ==
LOC: ICU 00:38 → ED 00:38 → ICU 05:03
PROVIDERS: ADMIT Family Medicine Adult Medicine; ATTEND Family Medicine Adult Medicine